=== PATIENT | male | born 1935 | race Caucasian/White ===

== ENCOUNTER → 2017-06-21 | Outpatient (CLI) | payer OTHER ==
[2017-06-17 10:33] LABS: BLOOD UREA NITROGEN 13 mg/dl (7-18)
[~2017-06-21] MED LIST: ALBU1AER9 PO; ASPCH81X PO; ASPEC81 PO; CPR500 PO; GADAVIST IV PRN; METO25TA56 PO; NAPR-998 PO; ROSU5TAB PO; SYMIN160 INH
--- NOTE | 2017-06-21 14:25 | DIAGNOSTIC IMAGING REPORT ---
CERVICAL SPINE COMBO CLINICAL HISTORY: 82 years-old Male presenting with NUMBNESS/TINGLING RT ARM. TECHNIQUE: Multisequence, multiplanar MR imaging of the cervical spine was performed without the use of intravenous contrast. IV contrast: None. COMPARISON: None. FINDINGS: Localizer images: Unremarkable. Slightly exaggerated cervical lordosis. Vertebral bodies maintain normal height, alignment, and bone marrow signal intensity. Intervertebral disc desiccation noted in the mid cervical spine, where there are extensive disc osteophyte complexes from C2-3 through C5-6 further detailed below: C2-3: Minimal disc ossified complex without evidence of neural foraminal or spinal canal stenosis. C3-4: Mild disc osteophyte complex in combination with ligamentum flavum hypertrophy and uncovertebral and facet arthropathy result in circumferential effacement of the thecal sac and contouring of the ventral aspect of the cord. Moderate bilateral neural foraminal narrowing results. C4-5: Disc osteophyte complex, ligamentum flavum hypertrophy, and uncovertebral and facet arthropathy result in complete effacement of CSF and flattening of the spinal cord. Severe bilateral neural foraminal narrowing. C5-6: Disc osteophyte complex, ligament flavum hypertrophy, and uncovertebral and facet arthropathy result in complete effacement of CSF and flattening of the spinal cord. Severe bilateral neural foraminal narrowing. C6-7: Uncovertebral hypertrophy results in minimal bilateral neural foraminal narrowing. Cervical spinal cord altered in configuration as above although maintaining normal signal intensity. No evidence of atrophy. Craniocervical junction normal. Postcontrast imaging does not demonstrate abnormal enhancement. No epidural fluid collection. Paraspinal soft tissues within normal limits. IMPRESSION: 1. Extensive degenerative changes result in severe spinal canal stenosis at C4-5 and C5-6 with flattening of the spinal cord. This raises concern for spinal cord impingement. No demonstrable abnormal signal intensity within the spinal cord to suggest edema or myelomalacia. 2. Varying degrees of neural foraminal narrowing, severe bilateral at C4-5 and C5-6, further detailed above. The report will be called/faxed according to standard departmental protocol. Electronically signed by: Sigifredo Toro M.D. 06/21/2017 2:24 PM Dictated Date/Time: 06/21/2017 2:17 PM
== END | disposition home or self-care (01) ==
LOC: C.MRIBC 12:58
PROVIDERS: ATTEND Physician Assistant
DX: R20.0 Anesthesia of skin (principal); R20.2 Paresthesia of skin; E11.9 Type 2 diabetes mellitus without complications; D64.9 Anemia, unspecified; M99.71 Connective tissue and disc stenosis of intervertebral foramina of cervical region

== ENCOUNTER 2017-08-10 15:57 | Emergency (ER) | payer OTHER ==
[~2017-08-10] VITALS: Ht 174 cm; Wt 98.7 kg
[~2017-08-10 15:57] MED LIST changes: -GADAVIST IV PRN; -METO25TA56 PO; -NAPR-998 PO; -ROSU5TAB PO; -SYMIN160 INH
[2017-08-10 15:59] VITALS: BP 136/83; PULSE 77; TEMP 36.4; O2SAT 94; Ht 174 cm; Wt 98.7 kg
[2017-08-10] MEDS ORDERED: ASPI81TA28 PO (16:35)
[2017-08-10] MEDS ORDERED: ALBU18002 INH (16:35)
--- NOTE | 2017-08-10 16:37 | DIAGNOSTIC IMAGING REPORT ---
L ELBOW MIN 3 VIEWS ROUTINE HISTORY: 82 years-old Male L elbow/prox forearm pain acute left elbow pain status post fall. COMPARISON: None available TECHNIQUE: 3 views of the left elbow FINDINGS: Chondrocalcinosis about the elbow. Mild marginal spurring involves both the lateral and medial epicondyles. Minimal spurring of the olecranon process. No acute fracture or dislocation. Radial head appears intact. Mild soft tissue swelling noted about the elbow. IMPRESSION: 1. Mild soft tissue swelling without acute fracture or dislocation. 2. Chondrocalcinosis with mild degenerative changes as above. The above report was generated using voice recognition software. It may contain grammatical, syntax or spelling errors. Electronically signed by: Raul Delatorre M.D. 08/10/2017 4:36 PM Dictated Date/Time: 08/10/2017 4:34 PM
--- NOTE | 2017-08-10 16:56 | EMERGENCY ROOM VISIT NOTE ---
ED Visit Note First contact with patient: 16:03 I did evaluate and examine this patient myself. I did guide management for the patient. I agree with the APC's assessment as discussed. Please see the APC's dictation for further details. I did independently review the x-rays. There is no evidence of fracture. I am concerned about possible partial muscle tear. He was placed in a sling. He has no evidence of compartment syndrome. He will follow up with [facility].
--- NOTE | 2017-08-10 16:59 | EMERGENCY ROOM VISIT NOTE ---
History First contact with patient: 16:03 Chief Complaint: FOREARM PAIN Stated Complaint: EXTREME PAIN IN LT FOREARM FOLLOWING ACCIDENT History of Present Illness The patient is a 82 year old male who presents to the Emergency Room with complaints of left proximal forearm/elbow pain after he lost his balance and fell on a ladder. The patient was reaching up with his right hand to change a smoke detector. Patient believes that he got his left arm caught in the ladder rung. The patient does report mild swelling, but denies any paresthesias or numbness of the left hand or fingers. He does report mild left shoulder pain as well. He denies any head or neck injury, back pain, chest pain or other significant injuries from this incident, and rates his discomfort a 5 out of 10. Review of Systems 10 system review was performed and was negative except for pertinent positives and negatives as indicated in history of present illness Past Medical/Surgical History Medical Problems: (1) Abdominal pain (2) Borderline diabetic (3) Seasonal asthma Family History Patient reports no known family medical history. Social History Smoking Status: Former Smoker Alcohol Use: occasionally Drug Use: none Marital Status: Current/Historical Medications Scheduled Aspirin (Aspirin Ec), 81 MG PO Q2D Budesonide/Formoterol Fumarate (Symbicort 160/4.5 Inhaler ), 2 PUFFS INH BID Metoprolol Tartrate (Lopressor) (Lopressor), 12.5 MG PO DAILY Naproxen Sodium-Diphenhydramin (Aleve Pm 220-25 mg), 1 TAB PO HS Rosuvastatin Calcium (Crestor), 2.5 MG PO HS Scheduled PRN Albuterol Sulfate (Proair Respiclick), 2 PUFFS INH UD PRN for Shortness of Breath Physical Exam Vital Signs Date Time Temp Pulse Resp B/P (MAP) Pulse Ox O2 Delivery O2 Flow Rate FiO2 08/10/17 15:59 36.4 77 20 136/83 94 Room Air Physical Exam CONSTITUTIONAL: Healthy and well nourished. Alert and oriented X 3 with positive affect. Patient does not appear in any significant distress. HEENT: Normocephalic, atraumatic. Pupils equal, round and reactive. NECK: Full active range of motion without discomfort. MUSCULOSKELETAL: Examination shows mild edema of the proximal forearm. He is tender over the extensor wad and through the radial head region. No focal tenderness through the medial or lateral joint line, olecranon process or triceps region. He does have mild discomfort through the distal biceps region, but has no antecubital ecchymosis. His pain is worsened with pronation and supination. Distal pulses are intact. INTEGUMENTARY: No rash or other significant dermatologic conditions noted. NEUROLOGIC: No focal neurologic deficits noted. Left hand and fingers are sensory intact. Medical Decision & Procedures ER Provider Diagnostic Interpretation: My interpretation of left elbow x-rays does not show any acute fractures or dislocations. Radiologist report is as follows: L ELBOW MIN 3 VIEWS ROUTINE HISTORY: 82 years-old Male L elbow/prox forearm pain acute left elbow pain status post fall. COMPARISON: None available TECHNIQUE: 3 views of the left elbow FINDINGS: Chondrocalcinosis about the elbow. Mild marginal spurring involves both the lateral and medial epicondyles. Minimal spurring of the olecranon process. No acute fracture or dislocation. Radial head appears intact. Mild soft tissue swelling noted about the elbow. IMPRESSION: 1. Mild soft tissue swelling without acute fracture or dislocation. 2. Chondrocalcinosis with mild degenerative changes as above. ED Course Patient history and physical exam were performed. Nurse's notes were reviewed. The patient refused any analgesics while in the emergency department. An ice pack was applied. X-rays of the left elbow were normal. I did suggest that the patient follow-up with [facility] for further reevaluation and management. An arm sling was applied. The patient may alternate ibuprofen and Tylenol as needed for pain. The patient was happy with plan of care, voiced understanding of all discharge instructions, and rated his discomfort a 5 out of 10 at the conclusion of my exam. The patient was also seen and examined by Dr. Connor, ED attending physician, who agrees with workup and plan of care. Medical Decision Medication Reconcilliation Current Medication List: was personally reviewed by ri Blood Pressure Screening Patient's blood pressure: Normal blood pressure Impression Primary Impression: Contusion of left elbow and forearm Departure Information Dispostion Home / Self-Care Referrals Musa Araujo M.D. Forms HOME CARE DOCUMENTATION FORM, IMPORTANT VISIT INFORMATION Patient Instructions My [facility] Additional Instructions Intermittently apply ice (20 minutes on, 20 minutes off) over the next few days , then you may alternate ice and heat as needed. Ibuprofen 600 mg and/or Tylenol 1000 mg every 8 hours. You may also alternate these medications for more effective pain relief: Ibuprofen --4 HRS--> Tylenol --4 HRS--> ibuprofen --4 HRS--> Tylenol .... Follow-up with [facility] (Dr. Araujo) for further reevaluation and management - call tomorrow morning for an appointment. Problem Qualifiers Primary Impression: Contusion of left elbow and forearm Encounter type: initial encounter Qualified Codes: S50.12XA - Contusion of left forearm, initial encounter
[2017-08-10] MEDS ORDERED: METO25TA56 PO (18:27)
[2017-08-10] MEDS ORDERED: NAPR-998 PO (21:22)
[2017-08-10] MEDS ORDERED: ROSU5TAB PO (21:25)
[2017-08-10] MEDS ORDERED: SYMIN160 INH (21:27)
== END 2017-08-10 17:00 | disposition home or self-care (01) ==
LOC: C.EDB 15:59 → C.EDD 17:00
DX: S50.12XA Contusion of left forearm, initial encounter (principal); W11.XXXA Fall on and from ladder, initial encounter; Z87.891 Personal history of nicotine dependence; Z79.82 Long term (current) use of aspirin; Z79.899 Other long term (current) drug therapy

== ENCOUNTER → 2017-10-14 | Outpatient (CLI) | payer OTHER ==
[~2017-10-14] MED LIST changes: +ALBU18002 INH; -ALBU1AER9 PO; -ASPCH81X PO; -ASPEC81 PO; +ASPI81TA28 PO; -CPR500 PO; +METO25TA56 PO; +NAPR-998 PO; +ROSU5TAB PO; +SYMIN160 INH
[2017-10-14 09:45] LABS: HEMATOCRIT 46.5 % (42-52); MEAN CELL VOLUME 93.6 fL (80-100); MEAN CORPUSCULAR HEMOGLOBIN 32.2 pg (25-34); MEAN CORPUSCULAR HGB CONC 34.4 g/dl (32-36); PLATELET COUNT 225 K/uL (130-400); RED CELL DISTRIBUTION WIDTH CV 13.1 % (11.5-14.5); RED CELL DISTRIBUTION WIDTH SD 44.8 fL (36.4-46.3); WHITE BLOOD COUNT 9.98 K/uL (4.8-10.8)
[2017-10-14 10:11] LABS: HEMOGLOBIN A1C 4.9 % (4.5-5.6)
[2017-10-14 11:01] LABS: BLOOD UREA NITROGEN 12 mg/dl (7-18); CALCIUM 9.2 mg/dl (8.5-10.1); CARBON DIOXIDE 29 mmol/L (21-32); CHOLESTEROL 220 mg/dl (0-200); CREATININE 1.09 mg/dl (0.60-1.40); GLUCOSE 140 mg/dl (70-99); POTASSIUM 4.1 mmol/L (3.5-5.1); SODIUM 135 mmol/L (136-145)
[2017-10-14 11:05] LABS: LDL CHOLESTEROL CALCULATED 140 mg/dl
== END | disposition home or self-care (01) ==
LOC: C.LAB1850 08:19
PROVIDERS: ATTEND Internal Medicine
DX: E11.9 Type 2 diabetes mellitus without complications (principal); E78.5 Hyperlipidemia, unspecified; D64.9 Anemia, unspecified

== ENCOUNTER 2019-05-27 10:46 | Inpatient (IN) ==
[2019-05-27 11:25] LABS: Basophils # (auto) 0.01 K/uL (0-0.2); Basophils % (auto) 0.1 %; Eosinophils # (auto) 0.11 K/uL (0-0.5); Eosinophils % (auto) 0.6 %; Hemoglobin 15.8 g/dL (14.0-18.0); Immature Granulocytes # (auto) 0.06 K/uL (0.00-0.02); Immature Granulocytes % (auto) 0.3 %; Lymphocytes # (auto) 2.13 K/uL (1.2-3.4); Lymphocytes % (auto) 11.2 %; Mean Corpuscular Hgb Conc 35.9 g/dL (32-36); Mean Corpuscular Volume 92.2 fL (80-100); Mean Platelet Volume 10.5 fL (7.4-10.4); Monocytes # (auto) 1.31 K/uL (0.11-0.59); Monocytes % (auto) 6.9 %; Neutrophils # (auto) 15.42 K/uL (1.4-6.5); Neutrophils % (auto) 80.9 %; Platelet Count 204 K/uL (130-400); RDW Coefficient of Variation 12.7 % (11.5-14.5); RDW Standard Deviation 42.8 fL (36.4-46.3); Red Blood Count 4.77 M/uL (4.7-6.1); White Blood Count 19.04 K/uL (4.8-10.8)
[2019-05-27 11:43] LABS: Albumin Level 3.9 gm/dl (3.4-5.0); BUN Creatinine Ratio 16.3 (10-20); Calcium 9.1 mg/dl (8.5-10.1); Creatinine Clr Calc Pharmacy 62.2 ml/min; Est GFR (African American) 85.5; Est GFR (Non-African American) 73.7; Potassium 4.4 mmol/L (3.5-5.1)
[2019-05-27 11:47] LABS: Albumin Globulin Ratio 1.1 (0.9-2); Bilirubin,Total 1.1 mg/dl (0.2-1); Globulin 3.5 gm/dl (2.5-4.0); Total Protein 7.4 gm/dl (6.4-8.2)
--- NOTE | 2019-05-27 12:07 | CT Scan Report ---
CT SCAN OF THE ABDOMEN AND PELVIS WITHOUT CONTRAST CLINICAL HISTORY: Left lower quadrant abdominal pain. Hypotension. History of diverticulitis. COMPARISON STUDY: 02/22/2016 TECHNIQUE: CT scan of the abdomen and pelvis was performed from the lung bases to the proximal femurs . Images are reviewed in the axial, sagittal, and coronal planes. IV contrast was not administered fo r this examination. A dose lowering technique was utilized adhering to the principles of ALARA. CT DOSE: 533.49 mGy.cm FINDINGS: Lower chest: There are dependent atelectatic changes. Liver: The unenhanced liver is normal in size, contour, and attenuation. There is no intrahepatic chris iary ductal dilatation. Gallbladder: Unremarkable. Spleen: Normal in size and attenuation. Pancreas: Unremarkable. Adrenal glands: Unremarkable. Kidneys: No renal, ureteral, or bladder calculi are visualized. There is a 1 cm right renal cyst. Bowel: There is extensive colonic diverticulosis. There are peridiverticular inflammatory changes at the level of the distal descending colon. There are multiple droplets of free intraperitoneal air, li lizzie secondary to colonic perforation at this site. There are no fluid collections to indicate a drai nable abscess. Peritoneum: There is free intraperitoneal air. There is trace free pelvic fluid. Vasculature: The abdominal aorta is normal in course and caliber. Adenopathy: None. Pelvic viscera: The prostate is enlarged. . Skeletal structures: There is a small amount of fluid within the right iliopsoas bursa IMPRESSION: 1. Acute diverticulitis involving the distal descending colon. This is felt to be perforated, given t he multiple droplets of free intraperitoneal air. No evidence of abscess. 2. No evidence of bowel obstruction Electronically signed by: Ilir Cantor M.D. 05/27/2019 12:05 PM
[2019-05-27] MEDS ORDERED: PIPERACILL/TAZOBAC CONSULT ACTIVE PRN ×2 (12:10→14:52)
[2019-05-27] MEDS ORDERED: SODIUM CHLORIDE 0.9% 1000ML 1,000 ML IV STA (12:10)
[2019-05-27] MEDS ORDERED: SODIUM CHLORIDE 0.9% 1000ML 500 ML IV ONE (12:10)
[2019-05-27] MEDS ORDERED: PIPERACILLIN/TAZOBACTAM 4.5 GM/120 ML BAG IV ONE (12:10)
[2019-05-27 12:47] LABS: Appearance Urine Clear (Clear); Bacteria Urine Automated Negative (Negative); Bilirubin Urine Negative (Negative); Blood Urine Negative (Negative); Cast Urine Automated 0 /lpf (0-5); Color Urine Yellow; Epithelial Cell Urine Auto 0-5 /lpf (0-5); Glucose Urine UA Negative (Negative); Ketones Urine Negative (Negative); Leukocyte Esterase Urine Trace (Negative); Nitrite Urine Negative (Negative); Protein Urine Negative (Negative); RBC Urine Automated 0-4 /hpf (0-4); Specific Gravity Urine 1.009 (1.000-1.030); Urobilinogen Urine Negative (Negative); WBC Urine Automated 0 /hpf (0-5); pH Urine 7.5 (4.5-7.5)
--- NOTE | 2019-05-27 14:08 | History & Physical Report ---
Date of Service May 27, 2019 Assessment & Plan (1) Abdominal pain: CT AP noted for diverticulitis with possible micro perf and no abscess ED spoke with gen surg who will see pt Started on zosyn in the ED, will continue NPO until surgical eval---If surgery has no further interventions, pt can eat from a medical standpoint IVF Elevated WBC, afebrile Monitor (2) Ventricular dysfunction: Pt describes some sort of ventricular issue that he used to take metoprolol for, however he started exercising and the resulting weight loss left his BP in the low normal range It was decided to d/c metoprolol several months ago due to this (3) Hyperlipidemia: Resolved s/p weight loss, no longer on medication (4) Asthma: continue PRN albuterol (5) DVT prophylaxis: SCDs History of Present Illness Primary Care Provider: NO PCP 84 y/o M c/o abd pain. Pt states he woke up with some R shoulder pain around 2:30a and noted a sudden sharp LLQ abd pain at that time. They had eaten dinner out last night and he had noted a tomato that was a bit "off" so he thought maybe it was related to that, but his pain continued to worsen. It became more sharp and intense. He had several bowel movements that were firm but frequent, however this did not improve his pain. He has a hx of diverticulitis x1 and felt that this was a less intense pain but similar overall to that episode, so he came to the ED. Pt states that he no longer has pain without moving but there is still a sharp pain if he moves around much s/p IVF and abx in the ED. 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 Family History Sister Myocardial infarction Hypertension Mother CHF (congestive heart failure) Social History Feels Safe at Home: Yes Smoking Status: Former smoker Tobacco Type: pipe ; Cigarettes Per Day: pipe in college ; Hx Alcohol Use: Yes (1-2 glasses of wine 1-2 nights per week) Hx Substance Use: No Review of Systems Review of Systems: Pertinent positives and negatives reviewed in HPI--all others negative Physical Exam Constitutional: WD/WN, vitals as above Eyes: normal visual barber by confrontation and + anicteric sclerae Neck: normal visual inspection and trachea midline Respiratory: normal respiratory effort, lungs clear to auscultation Cardiovascular: Rate/Rhythm: regular rate and regular rhythm Gastrointestinal (Abdomen): Inspection/Auscultation: abdomen not distended Percussion/Palpation: + abdomen tender (LLQ) and abdomen soft Musculoskeletal: Head/Neck/Chest: normocephalic and head atraumatic negative for edema, peripheral pulses intact Skin: no rashes, warm and dry Neurologic: awake; not confused Speech / Cognition: normal speech Psychiatric: A+Ox3, euthymic affect Results & Data Vital Signs (Past 12 Hours) Vital Signs Temp Pulse Resp BP Pulse Ox 05/27/19 12:25 66 17 109/68 95 05/27/19 12:05 63 17 110/60 97 05/27/19 11:30 72 27 H 103/60 98 05/27/19 11:29 96 05/27/19 11:11 76 21 05/27/19 11:05 82 19 109/61 97 05/27/19 10:55 36.6 C 92 H 20 86/52 L 97 Diagnostic Findings CTAP: acute distal descending colon diverticulitis with possible micro perf, neg for abscess ECG Rhythm: normal sinus Code Status & VTE Plan VTE Prophylaxis Plan VTE Prophylaxis will be ordered: Yes PG Care Time/CCT Total # of Minutes Spent Total Time Spent with Patient: Total time spent is greater than 50% in coordination of care (as documented) at patient's floor/unit and/or counseling patient:
[2019-05-27] MEDS ORDERED: ALBUTEROL HFA 8 GM INHALER INH PRN (14:52)
[2019-05-27] MEDS ORDERED: MAGNESIUM HYDROXIDE SUSP 30 ML UDC PO PRN (14:52)
[2019-05-27] MEDS ORDERED: ONDANSETRON INJ 2 MG/ML 2 ML VIAL IV PRN (14:52)
[2019-05-27] MEDS: LACTATED RINGER'S 1,000 ML IV SCH ×2 (15:43→23:22)
[2019-05-27] MEDS: PIPERACILLIN/TAZOBACTAM 3.375 GM in DEXTROSE 5% 100 ML IV SCH (18:25)
--- NOTE | 2019-05-27 18:26 | Emergency Department Note ---
Entered by Dhara Gonsales acting as a scribe for ED Provider Note CHIEF COMPLAINT: Abdominal pain HISTORY OF PRESENT ILLNESS: The patient is an 84 year old male who presents to the Emergency Room with complaints of worsening abdominal pain that began 9 hours ago. The patient states that his pain is mostly on his left large intestine. The patient states that he took Pepcid and drank water prior to arrival. The patient states that hi s pain feels like prior episodes of diverticulitis. The patient rates his pain as a 5/10. The patient states that the pain is relieved when laying down. Pt denies LOC, headache, fevers, chills, diaphoresis, visual changes, neck pain, chest pain, breathing difficulties, nausea, vomiting, back pain, melena, hematochezia, urinary symptoms, numbness, weakness, lymphadenopathy, rash, or other complaints. REVIEW OF SYSTEMS: See HPI for pertinent positives and negatives. A total of ten systems were reviewed and were otherwise negative. 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 PHYSICAL EXAM: GENERAL: Awake, alert, well-appearing, in no distress HENT: Normocephalic, atraumatic. Oropharynx unremarkable. EYES: PERRL. Normal conjunctiva. Sclera non-icteric. NECK: Inspection normal. Non-tender. Supple. No nuchal rigidity. FROM. No masses. RESPIRATORY: Clear to auscultation. No wheezes. No rales. Normal respiratory effort. CARDIAC: Normal rate. Normal rhythm. No murmurs. No rubs. Extremities warm and well perfused. Pulses equal. No JVD. GI: Mild rebounding, LUQ tenderness. Soft, non-distended. No tenderness to palpation. No guarding. No masses. RECTAL: Deferred. MUSCULOSKELETAL: Atraumatic. Chest examination reveals no tenderness. The back is symmetrical on inspection without obvious abnormality. There is no CVA tenderness to palpation. No joint edema. LOWER EXTREMITIES: Calves are equal size bilaterally and non-tender. No edema. No discoloration. NEURO: Normal sensorium. No sensory or motor deficits noted. SKIN: No rash or jaundice noted. EMERGENCY DEPARTMENT COURSE: 1129: Past medical records reviewed. The patient was evaluated in room B6, and a complete history and physical examination were performed. 1216: I discussed the patient's case with Dr. Phillip- [facility] [place] he agrees to admit patient to medicine. 1243: I discussed the patient's case with Dr. Moya's- [facility] Hospitalist. She will evaluate the patient for further management. 1251: I updated the patient on the test results and treatment plan. He is agreeable for admission. MEDICAL DECISION MAKING: B6 Triage Nursing notes reviewed and agree them. Additional history obtained from the patient's . The patient's history was concerning for abdominal pain. Differential diagnosis: Etiologies such as diverticulitis, PUD, biliary pathology, UTI, pancreatitis, obstruction, mesenteric ischemia, aortic pathology, infections, inflammatory bowel disease, renal colic, appendicitis, as well as others were entertained. Physical examination findings: As above. ER treatment provided: he declined analgesia IV Zosyn IV saline hydration On reassessment the patient felt better. Diagnostics interpreted by me: ECG: No acute ischemia or dysrhythmia. The labs revealed a moderate leukocytosis on CBC. Chemistry panel and urinalysis unremarkable. Imaging studies: CT scan of the abdomen pelvis was performed and showed microperforated diverticulitis. Consultation: A consultation was placed with the general surgeon on-call, Dr. Phillip. He agreed with the antibiotics and medical admission. Consultation was placed with Dr. Harris of internal medicine.. The case was discussed and diagnostics were reviewed. The patient was evaluated in the ER for further treatment. IMPRESSION: Diverticulitis of intestine with perforation PLAN: Being evaluated by hospitalist The scribe's documentation has been prepared under my direction and personally reviewed by me in its entirety. I confirm that the note above accurately reflects all work, treatment, procedures, and medical decision making performed by me. CRITICAL CARE: I have personally spent greater than 30 minutes of critical care time in the direct management of this patient. This includes bedside care, interpretation of diagnostic studies, and testing, discussion with consultants, patient, and family members, and other required patient management activities. This 30 minutes is in excess of all separately billable procedures. 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 Family History Sister Myocardial infarction Hypertension Mother CHF (congestive heart failure) Social History Preferred Language: Ukrainian Communication Ability: Effective Allergy Nurse Required: No Beliefs That Will Affect Care: None Current Living Situation: Personal Care Facility Current Living Situation Comment: [facility] Feels Safe at Home: Yes Smoking Status: Former smoker Tobacco Type: pipe ; Cigarettes Per Day: pipe in college ; Hx Alcohol Use: Yes Alcohol type: wine Hx Substance Use: No Results & Data Vital Signs Vital Signs - 24 hr 05/27/19 10:55 05/27/19 11:05 05/27/19 11:11 Temperature 36.6 C Temperature Source Oral Sepsis Recent Fever Within 48 Hours No Sepsis New/Unexplained Change in Mental Status No Sepsis Action Taken by Nursing No Action Required Pulse Rate 92 H 82 76 Pulse Rate from SpO2 Sensor Pulse Rhythm Regular Pulse Strength Normal Respiratory Rate 20 19 21 Respiratory Effort / Characteristics Non-Labored Spontaneous Respiratory Depth Normal Respiratory Pattern Regular Blood Pressure 86/52 L 109/61 Blood Pressure Mean 63 77 Blood Pressure Position Sitting Pulse Oximetry 97 97 Oxygen Delivery Method Room Air Room Air 05/27/19 11:29 05/27/19 11:30 05/27/19 12:05 Temperature Temperature Source Sepsis Recent Fever Within 48 Hours Sepsis New/Unexplained Change in Mental Status Sepsis Action Taken by Nursing Pulse Rate 72 63 Pulse Rate from SpO2 Sensor Pulse Rhythm Pulse Strength Respiratory Rate 27 H 17 Respiratory Effort / Characteristics Respiratory Depth Respiratory Pattern Blood Pressure 103/60 110/60 Blood Pressure Mean 74 76 Blood Pressure Position Pulse Oximetry 96 98 97 Oxygen Delivery Method Room Air Room Air Room Air 05/27/19 12:25 Temperature Temperature Source Sepsis Recent Fever Within 48 Hours Sepsis New/Unexplained Change in Mental Status Sepsis Action Taken by Nursing Pulse Rate 66 Pulse Rate from SpO2 Sensor 64 Pulse Rhythm Pulse Strength Respiratory Rate 17 Respiratory Effort / Characteristics Respiratory Depth Respiratory Pattern Blood Pressure 109/68 Blood Pressure Mean 81 Blood Pressure Position Pulse Oximetry 95 Oxygen Delivery Method Room Air Home Medications Current Medication List: was personally reviewed by me Laboratory Data Attestation: I reviewed the patient's lab results. Result diagrams: 05/27/19 11:15 05/27/19 11:15 Lab Results 05/27/19 05/27/19 05/27/19 Range/Units 11:15 11:15 12:03 WBC 19.04 H (4.8-10.8) K/uL RBC 4.77 (4.7-6.1) M/uL Hgb 15.8 (14.0-18.0) g/dL Hct 44.0 (42-52) % MCV 92.2 (80-100) fL MCH 33.1 (25-34) pg MCHC 35.9 (32-36) g/dL RDW Std Deviation 42.8 (36.4-46.3) fL RDW Coeff of Reilly 12.7 (11.5-14.5) % Plt Count 204 (130-400) K/uL MPV 10.5 H (7.4-10.4) fL Immature Gran % (Auto) 0.3 % Neut % (Auto) 80.9 % Lymph % (Auto) 11.2 % [place] % (Auto) 6.9 % Eos % (Auto) 0.6 % Baso % (Auto) 0.1 % Immature Gran # (Auto) 0.06 H (0.00-0.02) K/uL Neut # (Auto) 15.42 H (1.4-6.5) K/uL Lymph # (Auto) 2.13 (1.2-3.4) K/uL [place] # (Auto) 1.31 H (0.11-0.59) K/uL Eos # (Auto) 0.11 (0-0.5) K/uL Baso # (Auto) 0.01 (0-0.2) K/uL Sodium 136 (136-145) mmol/L Potassium 4.4 (3.5-5.1) mmol/L Chloride 102 (98-107) mmol/L Carbon Dioxide 30 (21-32) mmol/L Anion Gap 4.0 (3-11) BUN 15 (7-18) mg/dl Creatinine 0.95 (0.6-1.4) mg/dl Est Cr Clr Drug Dosing 62.2 ml/min Est GFR ( Amer) 85.5 Est GFR (Non-Af Amer) 73.7 BUN/Creatinine Ratio 16.3 (10-20) Glucose 112 H (70-99) mg/dl Calcium 9.1 (8.5-10.1) mg/dl Total Bilirubin 1.1 H (0.2-1) mg/dl AST 24 (15-37) U/L ALT 28 (12-78) U/L Alkaline Phosphatase 64 (45-117) U/L Total Protein 7.4 (6.4-8.2) gm/dl Albumin 3.9 (3.4-5.0) gm/dl Globulin 3.5 (2.5-4.0) gm/dl Albumin/Globulin Ratio 1.1 (0.9-2) Lipase 89 (73-393) U/L Urine Color Yellow Urine Appearance Clear (Clear) Urine pH 7.5 (4.5-7.5) Ur Specific [place] 1.009 (1.000-1.030) Urine Protein Negative (Negative) Urine Glucose (UA) Negative (Negative) Urine Ketones Negative (Negative) Urine Blood Negative (Negative) Urine Nitrite Negative (Negative) Urine Bilirubin Negative (Negative) Urine Urobilinogen Negative (Negative) Ur Leukocyte Esterase Trace H (Negative) Urine WBC (Auto) 0 (0-5) /hpf Urine RBC (Auto) 0-4 (0-4) /hpf U Hyaline Cast (Auto) 0 (0-5) /lpf U Epithel Cells (Auto) 0-5 (0-5) /lpf Urine Bacteria (Auto) Negative (Negative) Administered Medications Sodium Chloride (Nss 1000ml) 1,000 mls @ 125 mls/hr IV .Q8H STA Stop: 05/27/19 20:09 Last Infusion: 05/27/19 15:43 Dose: 0 mls/hr Documented by: [id number] Admin: 05/27/19 12:23 Dose: 125 mls/hr Documented by: [id number] Lactated Ringer's (Lr) 1,000 mls @ 115 mls/hr IV .Q8H42M KIRSTIN Stop: 06/26/19 14:51 Last Admin: 05/27/19 15:43 Dose: 115 mls/hr Documented by: [id number] Discontinued Medications Piperacillin Sod/Tazobactam Sod (Zosyn) 4.5 gm in 120 mls @ 240 mls/hr IV NOW ONE Stop: 05/27/19 12:39 Last Infusion: 05/27/19 13:35 Dose: 0 mls/hr Documented by: [id number] Admin: 05/27/19 12:22 Dose: 240 mls/hr Documented by: [id number] Sodium Chloride (Nss 1000ml) 500 mls @ 999 mls/hr IV .Q31M ONE Stop: 05/27/19 12:40 Last Infusion: 05/27/19 13:35 Dose: 0 mls/hr Documented by: [id number] Admin: 05/27/19 12:23 Dose: 999 mls/hr Documented by: [id number] Imaging Data Radiologist's Impression: Radiology results as stated below per my review and the radiologist's interpretation: CT SCAN OF THE ABDOMEN AND PELVIS WITHOUT CONTRAST CLINICAL HISTORY: Left lower quadrant abdominal pain. Hypotension. History of diverticulitis. COMPARISON STUDY: 02/22/2016 TECHNIQUE: CT scan of the abdomen and pelvis was performed from the lung bases to the proximal femurs. Images are reviewed in the axial, sagittal, and coronal planes. IV contrast was not administered for this examination. A dose lowering technique was utilized adhering to the principles of ALARA. CT DOSE: 533.49 mGy.cm FINDINGS: Lower chest: There are dependent atelectatic changes. Liver: The unenhanced liver is normal in size, contour, and attenuation. There is no intrahepatic biliary ductal dilatation. Gallbladder: Unremarkable. Spleen: Normal in size and attenuation. Pancreas: Unremarkable. Adrenal glands: Unremarkable. Kidneys: No renal, ureteral, or bladder calculi are visualized. There is a 1 cm right renal cyst. Bowel: There is extensive colonic diverticulosis. There are peridiverticular inflammatory changes at the level of the distal descending colon. There are multiple droplets of free intraperitoneal air, likely secondary to colonic perforation at this site. There are no fluid collections to indicate a drainable abscess. Peritoneum: There is free intraperitoneal air. There is trace free pelvic fluid. Vasculature: The abdominal aorta is normal in course and caliber. Adenopathy: None. Pelvic viscera: The prostate is enlarged. . Skeletal structures: There is a small amount of fluid within the right iliopsoas bursa IMPRESSION: 1. Acute diverticulitis involving the distal descending colon. This is felt to be perforated, given the multiple droplets of free intraperitoneal air. No jackie dence of abscess. 2. No evidence of bowel obstruction Electronically signed by: Ilir Cantor M.D. 05/27/2019 12:05 PM ECG Data Attestation: I personally reviewed and interpreted this ECG as follows: Indication: abdominal pain Rate (beats per minute): 68 Rhythm: normal sinus Findings: no PAC, no PVC, no ST depression and no ST elevation Blood Pressure Blood Pressure Findings: Normal blood pressure Blood Pressure Disposition: did not require urgent referral Discharge Plan Visit Data *Final* Discharge Date/Time: 05/27/19 14:27 Chief Complaint: Abdominal Pain Stated Complaint: SHARP PAIN ON LEFT SIDE- HX DIVERTICULTIS ED Provider: Jose Musa Discharge Problem: Diverticulitis of intestine with perforation Patient Disposition: Admitted As Inpatient Discharge Instructions Interventions: ED Discharge Assessment Last Done: 05/27/19 14:27 Discharge Problem: Diverticulitis of intestine with perforation Qualifiers: Diverticulitis site: unspecified part of intestinal tract Diverticulitis bleeding: unspecified bleeding status Qualified Code(s): K57.80 - Diverticulitis of intestine, part unspecified, with perforation and abscess without bleeding The scribe's documentation has been prepared under my direction and personally reviewed by me in its entirety. I confirm that the note above accurately reflects all work, treatment, procedures, and medical decision making performed by me.
[2019-05-27] MEDS: ACETAMINOPHEN 325 MG TAB PO PRN ×2 (18:46→23:06)
[2019-05-28] MEDS: PIPERACILLIN/TAZOBACTAM 3.375 GM in DEXTROSE 5% 100 ML IV SCH ×3 (01:55→18:10)
[2019-05-28 07:52] LABS: Basophils # (auto) 0.05 K/uL (0-0.2); Basophils % (auto) 0.5 %; Eosinophils # (auto) 0.32 K/uL (0-0.5); Eosinophils % (auto) 3.4 %; Hematocrit (blood only) 38.9 % (42-52); Hemoglobin 13.2 g/dL (14.0-18.0); Immature Granulocytes # (auto) 0.03 K/uL (0.00-0.02); Immature Granulocytes % (auto) 0.3 %; Lymphocytes # (auto) 1.94 K/uL (1.2-3.4); Lymphocytes % (auto) 20.8 %; Mean Corpuscular Hgb Conc 33.9 g/dL (32-36); Mean Corpuscular Volume 93.3 fL (80-100); Mean Platelet Volume 10.9 fL (7.4-10.4); Monocytes # (auto) 0.87 K/uL (0.11-0.59); Monocytes % (auto) 9.3 %; Neutrophils # (auto) 6.13 K/uL (1.4-6.5); Neutrophils % (auto) 65.7 %; Platelet Count 178 K/uL (130-400); RDW Standard Deviation 44.4 fL (36.4-46.3); Red Blood Count 4.17 M/uL (4.7-6.1); White Blood Count 9.34 K/uL (4.8-10.8)
[2019-05-28] MEDS: LACTATED RINGER'S 1,000 ML IV SCH ×2 (07:56→16:39)
[2019-05-28 08:28] LABS: BUN Creatinine Ratio 13.1 (10-20); Calcium 8.6 mg/dl (8.5-10.1); Creatinine Clr Calc Pharmacy 62.9 ml/min; Est GFR (African American) 86.6; Est GFR (Non-African American) 74.7; Potassium 3.8 mmol/L (3.5-5.1)
--- NOTE | 2019-05-28 09:39 | Surgery Consultation ---
Date of Consultation May 28, 2019 Assessment & Plan (1) Diverticulitis of intestine with perforation: clinically much improved WBC improved can have a few sips of clears only for now continue IV antibiotics will continue to follow closely. History of Present Illness Attending Physician: Jon Stern History of Present Illness pt with a couple day history of abdominal pain/worsening.. CT shows diverticulitis with likely microperforation. had a similar epidsode about 3 years ago per him. feeling much better today. 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 Family History Sister Myocardial infarction Hypertension Mother CHF (congestive heart failure) Social History Preferred Language: [place] Citizen Communication Ability: Effective Clinical Educator Required: No Beliefs That Will Affect Care: None Current Living Situation: Personal Care Facility Current Living Situation Comment: [facility] Feels Safe at Home: Yes Smoking Status: Former smoker Tobacco Type: pipe ; Cigarettes Per Day: pipe in college ; Hx Alcohol Use: Yes Alcohol type: wine Hx Substance Use: No Review of Systems Review of Systems: All systems reviewed & are unremarkable except as noted in HPI & below Physical Exam Constitutional: WD/WN, vitals as above no acute distress and not ill appearing Eyes: PERRL, conjunctivae normal, anicteric sclerae EOM intact bilaterally ENMT: external ear and nose normal, oropharynx normal Ears: no hearing impairment Neck: trachea midline, no thyromegaly Respiratory: normal respiratory effort; no respiratory distress and does not use accessory muscles Cardiovascular: Rate/Rhythm: regular rate and regular rhythm Gastrointestinal (Abdomen): soft. minimal ttp in LLQ and supra-pubic region. no g/r/r Skin: no rashes, warm and dry Psychiatric: Orientation: alert, oriented x 3 and cooperative Results & Data Vital Signs (Past 12 Hours) Vital Signs Temp Pulse Resp BP Pulse Ox 05/28/19 07:46 36.7 C 64 18 102/67 93 05/27/19 23:40 36.6 C 59 L 17 100/62 92 PG Care Time/CCT Total # of Minutes Spent Total Time Spent with Patient: Total time spent is greater than 50% in coordination of care (as documented) at patient's floor/unit and/or counseling patient: (1) Diverticulitis of intestine with perforation Diverticulitis bleeding: unspecified bleeding status Diverticulitis site: unspecified part of intestinal tract Qualified Code(s): K57.80 - Diverticulitis of intestine, part unspecified, with perforation and abscess without bleeding
--- NOTE | 2019-05-28 09:43 | Hospitalist Progress Note ---
Date of Service May 28, 2019 Assessment & Plan (1) Abdominal pain: Patient reports improvement in pain. Improved pain tolerance. Improved WBC. Clear diet started. Appreciate gen surg input. CT AP noted for diverticulitis with possible micro perf and no abscess Started on zosyn in the ED, will continue IVF Monitor (2) Ventricular dysfunction: Pt describes some sort of ventricular issue that he used to take metoprolol for, however he started exercising and the resulting weight loss left his BP in the low normal range It was decided to d/c metoprolol several months ago due to this (3) Hyperlipidemia: Resolved s/p weight loss, no longer on medication (4) Asthma: continue PRN albuterol (5) DVT prophylaxis: SCDs Subjective 84 yo male reports feeling better today. He still has mild pain in his abdomen. He required a dose of pain medicine over night. Currently pain is mild and located in the Right lower quadrant. Review of Systems Review of Systems: All systems reviewed & are unremarkable except as noted in HPI & below Physical Exam Physical Exam: Constitutional: WD/WN, vitals as above; patient appears comfortable. Eyes: normal visual barber by confrontation and + anicteric sclerae Neck: normal visual inspection and trachea midline Respiratory: normal respiratory effort, lungs clear to auscultation Cardiovascular: Rate/Rhythm: regular rate and regular rhythm Gastrointestinal (Abdomen): Inspection/Auscultation: abdomen not distended Percussion/Palpation: + abdomen tender (LLQ) and abdomen soft Musculoskeletal: Head/Neck/Chest: normocephalic and head atraumatic negative for edema, peripheral pulses intact Skin: no rashes, warm and dry Neurologic: awake; not confused Speech / Cognition: normal speech Psychiatric: A+Ox3, euthymic affect Results & Data Vital Signs (Past 12 Hours) Vital Signs Temp Pulse Resp BP Pulse Ox 05/28/19 07:46 36.7 C 64 18 102/67 93 05/27/19 23:40 36.6 C 59 L 17 100/62 92 PG Care Time/CCT Total # of Minutes Spent Total Time Spent with Patient: Total time spent is greater than 50% in coordination of care (as documented) at patient's floor/unit and/or counseling patient:
[2019-05-28] MEDS: ACETAMINOPHEN 325 MG TAB PO PRN (22:47)
[2019-05-29] MEDS: LACTATED RINGER'S 1,000 ML IV SCH (01:07)
[2019-05-29] MEDS: PIPERACILLIN/TAZOBACTAM 3.375 GM in DEXTROSE 5% 100 ML IV SCH (01:08)
--- NOTE | 2019-05-29 08:10 | Surgery Progress Note ---
Date of Service May 29, 2019 Assessment & Plan (1) Diverticulitis of intestine with perforation: clinically doing great will advance to full liquids d/c planning potentially later today vs tomorrow on home antibiotics. will defer to primary team Subjective feeling much better. essentially no pain today. daly clears. Physical Exam Physical Exam: alert. nad abd: soft. very mild LLQ ttp. no g/r/r Results & Data Vital Signs (Past 12 Hours) Vital Signs Temp Pulse Pulse Resp BP Pulse Ox 05/29/19 08:04 36.4 C L 59 L 18 102/64 93 05/28/19 23:10 36.8 C 65 18 112/68 93 PG Care Time/CCT Total # of Minutes Spent Total Time Spent with Patient: Total time spent is greater than 50% in coordination of care (as documented) at patient's floor/unit and/or counseling patient: (1) Diverticulitis of intestine with perforation Diverticulitis bleeding: unspecified bleeding status Diverticulitis site: unspecified part of intestinal tract Qualified Code(s): K57.80 - Diverticulitis of intestine, part unspecified, with perforation and abscess without bleeding
[2019-05-29] MEDS ORDERED: AMOXICILLIN/CLAVULANATE 875 MG TAB PO SCH (10:00)
[2019-05-29 10:06] LABS: Hematocrit (blood only) 39.5 % (42-52); Hemoglobin 13.6 g/dL (14.0-18.0); Mean Corpuscular Hgb Conc 34.4 g/dL (32-36); Mean Corpuscular Volume 93.8 fL (80-100); Mean Platelet Volume 10.6 fL (7.4-10.4); Platelet Count 194 K/uL (130-400); RDW Standard Deviation 44.1 fL (36.4-46.3); Red Blood Count 4.21 M/uL (4.7-6.1); White Blood Count 8.62 K/uL (4.8-10.8)
[2019-05-29 10:58] LABS: Albumin Globulin Ratio 0.8 (0.9-2); BUN Creatinine Ratio 8.6 (10-20); Bilirubin,Total 0.9 mg/dl (0.2-1); Calcium 8.7 mg/dl (8.5-10.1); Creatinine Clr Calc Pharmacy 69.6 ml/min; Est GFR (African American) 93.4; Est GFR (Non-African American) 80.6; Globulin 3.7 gm/dl (2.5-4.0); Potassium 3.6 mmol/L (3.5-5.1); Total Protein 6.7 gm/dl (6.4-8.2)
--- NOTE | 2019-05-29 11:43 | Discharge Summary ---
Date of Service May 29, 2019 Admission HPI Per Admitting Provider 84 y/o M c/o abd pain. Pt states he woke up with some R shoulder pain around 2:30a and noted a sudden sharp LLQ abd pain at that time. They had eaten dinner out last night and he had noted a tomato that was a bit "off" so he thought maybe it was related to that, but his pain continued to worsen. It became more sharp and intense. He had several bowel movements that were firm but frequent, however this did not improve his pain. He has a hx of diverticulitis x1 and felt that this was a less intense pain but similar overall to that episode, so he came to the ED. Pt states that he no longer has pain without moving but there is still a sharp pain if he moves around much s/p IVF and abx in the ED. Principal Diagnosis Diverticulitis with micro - perfortation Discharge Exam Constitutional WD/WN, vitals as above Respiratory normal respiratory effort, lungs clear to auscultation Cardiovascular RRR, no murmur, no edema Gastrointestinal (Abdomen) Inspection/Auscultation: abdomen normal to inspection and normal bowel sounds; abdomen not distended Percussion/Palpation: abdomen soft; abdomen nontender and no guarding Musculoskeletal no cyanosis or clubbing, extremities motor strength 5/5 Skin no rashes, warm and dry Neurologic moves all extremities and awake Psychiatric A+Ox3, euthymic affect Discharge Data Allergies Allergy/AdvReac Type Severity Reaction Status Date / Time No Known Drug Allergies Allergy Unknown ` Verified 05/27/19 12:25 Consultations 05/27/19 12:51 ED Decision to Admit Stat 05/27/19 14:52 Consult General Surgery Routine Ordered Studies 05/27/19 11:31 CT abd pelvis wo con Stat Hospital Course (1) Abdominal pain: No further abdominal pain WBCs 19 on admission now wnl, afebrile, patient feels good today, up and walking around, no nausea or vomiting, tolerating his diet without issue. He has not had a bowel movement since admission however given that he had few bowel movements at home the day he came in and has been having a reduced diet since, I think it is ok for him to go home with monitoring. I did instruct him that he should let his provider know if he has not had a bowel movement by Wednesday. Placed on a bland diet, tolerated full liquids this morning, will discharge if he tolerates bland lunch Surgery consulted - no surgical intervention necessary CT AP noted for diverticulitis with possible micro perf and no abscess Provided IV zosyn inpatient - will take Augmentin and metronidazole for home for total of 10 days. If this causes GI upset could consider dropping the Flagyl and continuing with just Augmentin. I discussed with him that he should contact his pcp if he is having trouble tolerating his regimen Bili was 1.1 but has resolved (2) Ventricular dysfunction: Pt describes some sort of ventricular issue that he used to take metoprolol for, however he started exercising and the resulting weight loss left his BP in the low normal range It was decided to d/c metoprolol several months ago due to this Discussed taking it easy for the next week as far as exercise goes - light walking but should hold off on full regimen until follow up with pcp (3) Hyperlipidemia: Resolved s/p weight loss, no longer on medication (4) Asthma: continue PRN albuterol (5) DVT prophylaxis: SCDs while inpatient Total Time Total Time Spent Total Time Spent (In Minutes): greater than 30 minutes Discharge Plan Discharge Items Patient Disposition: Home - Self-Care Reason For Visit: DIVERTICULITIS Discharge Diagnosis: Diverticulitis with micro-perforation Discharge Goals: Decrease discomfort and Improve disease control Activity: Resume your previous activity Activity Comment: gradually as tolerated Non-emergency contact: Primary Care Provider Call non-emergency contact if: you have any medication questions Follow-up/Referrals: PCP,NO [Primary Care Provider] - Diet: Low Fiber and Low Fat Addtl Provider Instructions: Please see your primary care provider within about a week. Please contact your provider if you have not had a bowel movement by Wednesday. You can advance your diet as you can tolerate starting with a low fat/ low fiber diet. Do not drink alcohol while taking metronidazole as this will cause vomiting. You should also take a good quality probiotic every day. Prescriptions: New amoxicillin-pot clavulanate 875-125 mg Tablet 1 tab PO BIDM Qty: 15 RF: 0 metronidazole 500 mg tablet 500 mg PO TID Qty: 22 RF: 0 Continued naproxen sodium [Aleve] 220 mg Tablet 220 mg PO Q12H RF: 0 albuterol sulfate [Ventolin HFA] 90 mcg/actuation Hfa Aerosol Inhaler 2 puff INHALATION Q6H PRN (Reason: Shortness Of Breath Or Wheezing) RF: 0 Aleve PM 220-25 mg Tablet 1 tab PO HS RF: 0 Stand-Alone Forms: [place]/Other Patient Handouts: Metronidazole Oral tablet, Amoxicillin Trihydrate Clavulanate Potassium Oral tablet Discharge Orders: Discharge Order (Routine); Ordered 05/29/19 Ordered By: Ree Cotton Admission Data Admit Date/Time: 05/27/19 13:55 Attending Provider: Jon Stern Admit Provider: Brenda Harris Primary Care Provider: PCP,NO Other Providers: Brenda Harris ; Luis Miguel Phillip Service: Medical
== END 2019-05-29 14:17 | disposition home or self-care (01) | DRG 392 ==
LOC: ED 10:46 → SUATTDRO 13:55 → 3W 13:55
DX: I51.9 Heart disease, unspecified; J45.909 Unspecified asthma, uncomplicated; K57.20 Diverticulitis of large intestine with perforation and abscess without bleeding; E78.5 Hyperlipidemia, unspecified

== ENCOUNTER 2019-06-02 17:44 | Observation (INO) ==
[2019-06-02 18:31] LABS: Basophils # (auto) 0.04 K/uL (0-0.2); Basophils % (auto) 0.5 %; Eosinophils # (auto) 0.33 K/uL (0-0.5); Eosinophils % (auto) 4.1 %; Hematocrit (blood only) 40.8 % (42-52); Hemoglobin 14.6 g/dL (14.0-18.0); Immature Granulocytes # (auto) 0.02 K/uL (0.00-0.02); Immature Granulocytes % (auto) 0.3 %; Lymphocytes # (auto) 2.43 K/uL (1.2-3.4); Lymphocytes % (auto) 30.5 %; Mean Corpuscular Hemoglobin 32.7 pg (25-34); Mean Corpuscular Hgb Conc 35.8 g/dL (32-36); Mean Corpuscular Volume 91.5 fL (80-100); Mean Platelet Volume 9.9 fL (7.4-10.4); Monocytes # (auto) 0.89 K/uL (0.11-0.59); Monocytes % (auto) 11.2 %; Neutrophils # (auto) 4.26 K/uL (1.4-6.5); Neutrophils % (auto) 53.4 %; Platelet Count 274 K/uL (130-400); RDW Coefficient of Variation 12.7 % (11.5-14.5); RDW Standard Deviation 42.6 fL (36.4-46.3); Red Blood Count 4.46 M/uL (4.7-6.1); White Blood Count 7.97 K/uL (4.8-10.8)
[2019-06-02 18:41] LABS: INR 1.3 (0.9-1.1); Partial Thromboplastin Ratio 1.1; Partial Thromboplastin Time 29.9 Seconds (21.0-31.0); Prothrombin Time 12.9 Seconds (9.0-12.0)
[2019-06-02 19:00] LABS: Alanine Aminotransferase 40 U/L (12-78); Albumin Level 3.4 gm/dl (3.4-5.0); Alkaline Phosphatase 55 U/L (45-117); BUN Creatinine Ratio 18.2 (10-20); Bilirubin,Total 0.5 mg/dl (0.2-1); Blood Urea Nitrogen 16 mg/dl (7-18); Calcium 9.1 mg/dl (8.5-10.1); Carbon Dioxide 29 mmol/L (21-32); Chloride 101 mmol/L (98-107); Creatinine Clr Calc Pharmacy 64.2 ml/min; Est GFR (African American) 91.2; Est GFR (Non-African American) 78.7; Glucose 104 mg/dl (70-99); Lipase 84 U/L (73-393); Sodium 134 mmol/L (136-145); Total Protein 7.3 gm/dl (6.4-8.2); Troponin I < 0.015 ng/ml (0-0.045)
[2019-06-02 19:53] LABS: Potassium 3.9 mmol/L (3.5-5.1)
[2019-06-02] MEDS ORDERED: IOVERSOL 100ml IV PRN (19:54)
[2019-06-02 19:59] LABS: Bilirubin Direct 0.1 mg/dl (0-0.2); Magnesium 1.7 mg/dl (1.8-2.4)
[2019-06-02] MEDS: SODIUM CHLORIDE 0.9% 500 ML IV SCH (20:19)
--- NOTE | 2019-06-02 20:19 | CT Scan Report ---
CT OF THE ABDOMEN AND PELVIS WITH CONTRAST CLINICAL HISTORY: Fever. History of diverticulitis. COMPARISON STUDY: CT of the abdomen and pelvis May 27, 2019. TECHNIQUE: Following IV administration of 94 mL of Optiray-320, axial images of the abdomen and pelvi s were obtained from the lung bases to the proximal femurs. Images were reviewed in the axial, sagitt al, and coronal planes. IV contrast was administered without complication. Automated exposure contro l was utilized for the study. A dose lowering technique was utilized adhering to the principles of A JOSÉ. CT DOSE: 627.07 mGycm FINDINGS: Lung bases are unremarkable. The liver, spleen, adrenal glands and pancreas are unremarkabl e. Several subcentimeter renal lesions are too small character as but favor cysts. There is no hydron ephrosis. There is no biliary or pancreatic ductal dilatation. There is no evidence for a bowel patte rn. Colonic diverticulosis is noted. Mild infiltration adjacent to the distal descending colon has de creased since CT of May 27, 2019. There is no abscess. Pneumoperitoneum shown on that exam has res olved. Bladder is moderately enlarged. IMPRESSION: Acute diverticulitis of the distal descending colon improved since exam of May 27 19. No abscess. Interval decrease in pericolonic infiltration and resolution of pneumoperitoneum. Electronically signed by: Alonso Cagle M.D. 06/02/2019 8:18 PM
[2019-06-02 20:23] LABS: Appearance Urine Clear (Clear); Bacteria Urine Automated Negative (Negative); Bilirubin Urine Negative (Negative); Blood Urine Negative (Negative); Cast Urine Automated 0 /lpf (0-5); Color Urine Yellow; Glucose Urine UA Negative (Negative); Ketones Urine Trace (Negative); Leukocyte Esterase Urine 1+ (Negative); Nitrite Urine Negative (Negative); Protein Urine Negative (Negative); Specific Gravity Urine 1.038 (1.000-1.030); Urobilinogen Urine Negative (Negative); pH Urine 6.5 (4.5-7.5)
--- NOTE | 2019-06-02 21:23 | XRay Report ---
XR chest 2V routine CLINICAL HISTORY: Chest pain. COMPARISON STUDY: Chest radiograph January 27, 2012. FINDINGS: Lung volumes are normal. Lungs are clear. There is no pneumothorax or pleural effusion. Car diac size is normal. Mediastinal contours are normal. There is no evidence for pulmonary edema. IMPRESSION: No acute cardiopulmonary findings. Electronically signed by: Alonso Cagle M.D. 06/02/2019 9:21 PM
[2019-06-02] MEDS ORDERED: ASPIRIN CHEW 324 MG PO STA (23:50)
--- NOTE | 2019-06-02 23:50 | Emergency Department Note ---
Entered by Triston Lee acting as a scribe for Farhat Negrete History of Present Illness General Chief complaint: Stroke/CVA Symptoms Stated complaint: CONFUSION, DIZZINESS, SPEECH DIFFICULTY Time Seen by Provider: 06/02/19 18:03 Source: patient History of Present Illness Onset (ago): day(s) 1 Location: head Pain Consistency: + constant Maximum Pain Intensity: 2 Quality: + other Associated symptoms: + other (Positive for double vision, headaches, decreased balance, mild CP, and a fever. Negative for abdominal pain.) The patient is an 84 year old male who presents to the emergency department with complaints of constant stroke-like symptoms beginning earlier today. The patient states that he was admitted to the hospital a week ago for diverticulitis, and he notes that he was discharged on 06/08/2019. He reports that he was discharged on Flagyl and Augmentin at that time. The patient believes that he is having side effects to the medication, as he is having double vision, headaches, decreased balance, mild CP, a metallic taste in his mouth, and a fever. He states that the chest pain was located substernally and was mild pressure in nature. He states that the headache was mild in nature also and is now resolved. He states that his double vision started earlier today and he notes that his fever reached a high of 101 today. He denies any abdominal pain. He reports that he had a CT of the head and blood work done today which were negative. The patient states that he was given Tylenol [employer]. Home Medications Home Medications Medication Instructions Recorded Confirmed Type amoxicillin-pot clavulanate 1 tab PO BIDM #15 tab 05/29/19 06/02/19 Rx acetaminophen [Tylenol] 650 mg PO Q4 PRN 06/02/19 06/02/19 History melatonin 1 mg PO HS 06/02/19 06/02/19 History Allergies Allergy/AdvReac Type Severity Reaction Status Date / Time prednisone AdvReac changes Verified 06/02/19 19:19 mood with higher doses Past Med/Surg History Medical History Asthma DVT prophylaxis Hyperlipidemia Ventricular dysfunction Diverticulitis of intestine with perforation (Acute) Seasonal asthma Borderline diabetic Abdominal pain Diverticulitis 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 Family History Sister Myocardial infarction Hypertension Mother CHF (congestive heart failure) Social History Preferred Language: Icelandic Communication Ability: Effective Galvanizer Required: No Beliefs That Will Affect Care: None Current Living Situation: Personal Care Facility Current Living Situation Comment: [facility] Feels Safe at Home: Yes Smoking Status: Never smoker Tobacco Type: pipe ; Cigarettes Per Day: pipe in college ; Hx Alcohol Use: Yes (1-2 glasses of wine 1-2 nights per week) Alcohol type: wi ne Hx Substance Use: No Review of Systems See HPI for pertinent positives & negatives. and A total of 10 systems reviewed and were otherwise negative Physical Exam Vital Signs Vital Signs - 24 hr 06/02/19 17:51 06/02/19 18:48 06/02/19 19:39 Temperature 37 C Temperature Source Oral Sepsis Recent Fever Within 48 Hours No Sepsis Action Taken by Nursing No Action Required Pulse Rate 85 85 Pulse Rate [Right] 77 Pulse Rhythm Regular Pulse Rhythm [Right] Regular Pulse Strength [Right] Normal Respiratory Rate 20 20 16 Respiratory Effort / Characteristics Non-Labored Spontaneous Non-Labored Spontaneous Respiratory Depth Normal Normal Blood Pressure 114/69 Blood Pressure [Right Arm] 124/77 Blood Pressure Mean 84 Blood Pressure Mean [Right Arm] 92 Blood Pressure Position Sitting Blood Pressure Position [Right Arm] Lying Pulse Oximetry 97 97 99 Oxygen Delivery Method Room Air Room Air Room Air 06/02/19 21:52 06/02/19 22:17 06/02/19 23:33 Temperature 36.7 C Temperature Source Oral Sepsis Recent Fever Within 48 Hours Sepsis Action Taken by Nursing Pulse Rate Pulse Rate [Right] 80 82 Pulse Rhythm Pulse Rhythm [Right] Regular Pulse Strength [Right] Normal Respiratory Rate 16 16 Respiratory Effort / Characteristics Non-Labored Spontaneous Non-Labored Spontaneous Respiratory Depth Normal Normal Blood Pressure Blood Pressure [Right Arm] 141/88 H 125/82 Blood Pressure Mean Blood Pressure Mean [Right Arm] 105 96 Blood Pressure Position Blood Pressure Position [Right Arm] Lying Sitting Pulse Oximetry 96 96 Oxygen Delivery Method Room Air Room Air GENERAL: He is oriented to person, place, and time. He appears well-developed and well-nourished. He does not appear distressed. HENT: Exam performed. - Head: Normocephalic and atraumatic. - Right Ear: External ear normal. No mastoid tenderness. - Left Ear: External ear normal. No mastoid tenderness. - Mouth/Throat: The oropharynx is clear and moist. No trismus in the jaw. No dental abscesses or uvula swelling. No oropharyngeal exudate or tonsillar abscesses. EYES: Conjunctivae and EOM are normal. Pupils are equal, round, and reactive to light. Right eye exhibits no discharge. Left eye exhibits no discharge. No scleral icterus. NECK: Normal range of motion. Neck supple. No JVD present. No spinous process tenderness present. No carotid bruit present. No rigidity. No tracheal deviation and normal range of motion present. No Brudzinski's sign and no Kernig's sign noted. CV: Normal rate, regular rhythm, normal heart sounds and intact distal pulses. There is no peripheral edema. Palpable radial pulses bue. PULM/CHEST: Effort normal and breath sounds normal. No respiratory distress. No stridor. He has no wheezes. He has no rales. - Chest Wall: He exhibits no tenderness. ABD: The abdomen is soft. Bowel sounds are normal. He has no distension. No mass is present. There is no tenderness. There is no rebound, no guarding, no Galindo's sign and no tenderness at McBurney's point. Rovsig negative. MUSC/SKEL: Normal range of motion. There is no peripheral edema, tenderness or deformity. LYMPH: No cervical adenopathy. NEURO: He is alert and oriented to person, place, and time. He has normal strength. No cranial nerve deficit or sensory deficit. Coordination and gait normal. GCS eye subscore is 4. GCS verbal subscore is 5. GCS motor subscore is 6. Cerebellar tests wnl. SKIN: Skin is warm and dry. He is not diaphoretic. PSYCH: He has a normal mood and affect. Behavior is normal. Judgment and thought content normal. Course 1803: Per review of EMR, the patient was admitted to the hospital on 05/27/2019 and discharged on 05/29/2019 for diverticulitis and possible microperforation. Surgery was consulted, but no surgical procedure was performed. The patient was discharged on Augmentin and Flagyl. He had a CT head done at 1101 today which was normal. He also had negative blood work done at that time which showed no leukocytosis and a WBC count of 7.7. The patients urine today was positive for nitrites and showed 1+ leukocyte esterase, but showed 10-20 epithelial cells.The patient was evaluated in room B2. A complete history and physical exam was performed. 2119: I left a message for Dr. Green - Internal Medicine, [facility]. 2329: Vital signs stable. Labs and imaging are within normal limits. Multiple messages have been left for patient's PCP Dr. Campo to send the patient to the emergency department including a message on his cell phone. No response. The at bedside is very concerned because she was saying that the patient was having difficulty finding his words, and slurred speech, double vision. She is worried about a stroke. I complained to them that the CT did not show any evidence of hemorrhage or large ischemic stroke and his symptoms have resolved at this time, however he could have been suffering from a TIA. Given we are unable to contact his physician for possible work-up of TIA at [facility], he will be admitted to the hospital service. Upon reevaluation, the patient is stable. I discussed the findings and the treatment plan with the patient. He expresses agreement and understanding. I spoke with Dr. Thomas of the [facility] ist Service. The patient will be evaluated for further management. Consultations Consultation #1: I reviewed the patient's case with Dr. Thomas - Hospitalist, [facility]. He will evaluate the patient for further management. Time: 23:29 Administered Medications Sodium Chloride (Nss) 500 mls @ 125 mls/hr IV .Q4H KIRSTIN Stop: 07/02/19 18:14 Last Admin: 06/02/19 20:19 Dose: 125 mls/hr Documented by: [id number] Ioversol (Optiray 320 100ml) 94 ml IV ONCE PRN PRN Reason: Interaction Checking Stop: 06/06/19 19:53 Last Admin: 06/02/19 19:54 Dose: 94 ml Documented by: [id number] Medical Decision Making Medical Records Attestation: I reviewed the patient's medical records. Home Medications Current Medication List: was personally reviewed by me Laboratory Data Attestation: I reviewed the patient's lab results. Result diagrams: 06/02/19 18:20 06/02/19 19:17 Lab Results 06/02/19 06/02/19 06/02/19 Range/Units 18:20 18:20 18:20 WBC 7.97 (4.8-10.8) K/uL RBC 4.46 L (4.7-6.1) M/uL Hgb 14.6 (14.0-18.0) g/dL Hct 40.8 L (42-52) % MCV 91.5 (80-100) fL MCH 32.7 (25-34) pg MCHC 35.8 (32-36) g/dL RDW Std Deviation 42.6 (36.4-46.3) fL RDW Coeff of Reilly 12.7 (11.5-14.5) % Plt Count 274 (130-400) K/uL MPV 9.9 (7.4-10.4) fL Immature Gran % (Auto) 0.3 % Neut % (Auto) 53.4 % Lymph % (Auto) 30.5 % [place] % (Auto) 11.2 % Eos % (Auto) 4.1 % Baso % (Auto) 0.5 % Immature Gran # (Auto) 0.02 (0.00-0.02) K/uL Neut # (Auto) 4.26 (1.4-6.5) K/uL Lymph # (Auto) 2.43 (1.2-3.4) K/uL [place] # (Auto) 0.89 H (0.11-0.59) K/uL Eos # (Auto) 0.33 (0-0.5) K/uL Baso # (Auto) 0.04 (0-0.2) K/uL PT 12.9 H (9.0-12.0) Seconds INR 1.3 H (0.9-1.1) APTT 29.9 (21.0-31.0) Seconds PTT Ratio 1.1 Sodium 134 L (136-145) mmol/L Potassium (3.5-5.1) mmol/L Chloride 101 (98-107) mmol/L Carbon Dioxide 29 (21-32) mmol/L Anion Gap 5.0 (3-11) BUN 16 (7-18) mg/dl Creatinine 0.90 (0.6-1.4) mg/dl Est Cr Clr Drug Dosing 64.2 ml/min Est GFR ( Amer) 91.2 Est GFR (Non-Af Amer) 78.7 BUN/Creatinine Ratio 18.2 (10-20) Glucose 104 H (70-99) mg/dl Lactate (0.4-2.0) mmol/L Calcium 9.1 (8.5-10.1) mg/dl Magnesium (1.8-2.4) mg/dl Total Bilirubin 0.5 (0.2-1) mg/dl Direct Bilirubin (0-0.2) mg/dl AST (15-37) U/L ALT 40 (12-78) U/L Alkaline Phosphatase 55 (45-117) U/L Troponin I < 0.015 (0-0.045) ng/ml Total Protein 7.3 (6.4-8.2) gm/dl Albumin 3.4 (3.4-5.0) gm/dl Lipase 84 (73-393) U/L Urine Color Urine Appearance (Clear) Urine pH (4.5-7.5) Ur Specific [place] (1.000-1.030) Urine Protein (Negative) Urine Glucose (UA) (Negative) Urine Ketones (Negative) Urine Blood (Negative) Urine Nitrite (Negative) Urine Bilirubin (Negative) Urine Urobilinogen (Negative) Ur Leukocyte Esterase (Negative) Urine WBC (Auto) (0-5) /hpf Urine RBC (Auto) (0-4) /hpf U Hyaline Cast (Auto) (0-5) /lpf U Epithel Cells (Auto) (0-5) /lpf Urine Bacteria (Auto) (Negative) 06/02/19 06/02/19 06/02/19 Range/Units 18:20 19:17 20:05 WBC (4.8-10.8) K/uL RBC (4.7-6.1) M/uL Hgb (14.0-18.0) g/dL Hct (42-52) % MCV (80-100) fL MCH (25-34) pg MCHC (32-36) g/dL RDW Std Deviation (36.4-46.3) fL RDW Coeff of Reilly (11.5-14.5) % Plt Count (130-400) K/uL MPV (7.4-10.4) fL Immature Gran % (Auto) % Neut % (Auto) % Lymph % (Auto) % [place] % (Auto) % Eos % (Auto) % Baso % (Auto) % Immature Gran # (Auto) (0.00-0.02) K/uL Neut # (Auto) (1.4-6.5) K/uL Lymph # (Auto) (1.2-3.4) K/uL [place] # (Auto) (0.11-0.59) K/uL Eos # (Auto) (0-0.5) K/uL Baso # (Auto) (0-0.2) K/uL PT (9.0-12.0) Seconds INR (0.9-1.1) APTT (21.0-31.0) Seconds PTT Ratio Sodium (136-145) mmol/L Potassium 3.9 (3.5-5.1) mmol/L Chloride (98-107) mmol/L Carbon Dioxide (21-32) mmol/L Anion Gap (3-11) BUN (7-18) mg/dl Creatinine (0.6-1.4) mg/dl Est Cr Clr Drug Dosing ml/min Est GFR ( Amer) Est GFR (Non-Af Amer) BUN/Creatinine Ratio (10-20) Glucose (70-99) mg/dl Lactate 1.1 (0.4-2.0) mmol/L Calcium (8.5-10.1) mg/dl Magnesium 1.7 L (1.8-2.4) mg/dl Total Bilirubin (0.2-1) mg/dl Direct Bilirubin 0.1 (0-0.2) mg/dl AST 37 (15-37) U/L ALT (12-78) U/L Alkaline Phosphatase (45-117) U/L Troponin I (0-0.045) ng/ml Total Protein (6.4-8.2) gm/dl Albumin (3.4-5.0) gm/dl Lipase (73-393) U/L Urine Color Yellow Urine Appearance Clear (Clear) Urine pH 6.5 (4.5-7.5) Ur Specific [place] 1.038 H (1.000-1.030) Urine Protein Negative (Negative) Urine Glucose (UA) Negative (Negative) Urine Ketones Trace H (Negative) Urine Blood Negative (Negative) Urine Nitrite Negative (Negative) Urine Bilirubin Negative (Negative) Urine Urobilinogen Negative (Negative) Ur Leukocyte Esterase 1+ H (Negative) Urine WBC (Auto) 1-5 (0-5) /hpf Urine RBC (Auto) 5-10 H (0-4) /hpf U Hyaline Cast (Auto) 0 (0-5) /lpf U Epithel Cells (Auto) 5-10 H (0-5) /lpf Urine Bacteria (Auto) Negative (Negative) Imaging Data Radiologist's Impression: Radiology results as stated below per my review and th e radiologist's interpretation: CT OF THE ABDOMEN AND PELVIS WITH CONTRAST FINDINGS: Lung bases are unremarkable. The liver, spleen, adrenal glands and pancreas are unremarkable. Several subcentimeter renal lesions are too small character as but favor cysts. There is no hydronephrosis. There is no biliary or pancreatic ductal dilatation. There is no evidence for a bowel pattern. Colonic diverticulosis is noted. Mild infiltration adjacent to the distal descending colon has decreased since CT of May 27, 2019. There is no abscess. Pneumoperitoneum shown on that exam has resolved. Bladder is moderately enlarged. IMPRESSION: Acute diverticulitis of the distal descending colon improved since exam of May 27, 2019. No abscess. Interval decrease in pericolonic infiltration and resolution of pneumoperitoneum. Electronically signed by: Alonso Cagle M.D. 06/02/2019 8:18 PM XR chest 2V routine FINDINGS: Lung volumes are normal. Lungs are clear. There is no pneumothorax or pleural effusion. Cardiac size is normal. Mediastinal contours are normal. There is no evidence for pulmonary edema. IMPRESSION: No acute cardiopulmonary findings. Electronically signed by: Alonso Cagle M.D. 06/02/2019 9:21 PM ECG Data Attestation: I personally reviewed and interpreted this ECG as follows: Indication: weakness Rate (beats per minute): 75 Rhythm: sinus rhythm Findings: no ST depression and no ST elevation Additional Comments: VT/QRS/QTc within normal limits. Blood Pressure Blood Pressure Findings: Normal blood pressure Blood Pressure Disposition: did not require urgent referral [facility] Narrative 1803: Per review of EMR, the patient was admitted to the hospital on 05/27/2019 and discharged on 05/29/2019 for diverticulitis and possible microperforation. Surgery was consulted, but no surgical procedure was performed. The patient was discharged on Augmentin and Flagyl. He had a CT head done at 1101 today which was normal. He also had negative blood work done at that time which showed no leukocytosis and a WBC count of 7.7. The patients urine today was positive for nitrites and showed 1+ leukocyte esterase, but showed 10-20 epithelial cells.The patient was evaluated in room B2. A complete history and physical exam was perf ormed. 0: I left a message for Dr. Green - Internal Medicine, [facility]. 9: Vital signs stable. Labs and imaging are within normal limits. Multiple messages have been left for patient's PCP Dr. Campo to send the patient to the emergency department including a message on his cell phone. No response. The at bedside is very concerned because she was saying that the patient was having difficulty finding his words, and slurred speech, double vision. She is worried about a stroke. I complained to them that the CT did not show any evidence of hemorrhage or large ischemic stroke and his symptoms have resolved at this time, however he could have been suffering from a TIA. Given we are unable to contact his physician for possible work-up of TIA at [facility], he will be admitted to the hospital service. Upon reevaluation, the patient is stable. I discussed the findings and the treatment plan with the patient. He expresses agreement and understanding. I spoke with Dr. Thomas of the [facility] Hospitalist Service. The patient will be evaluated for further management. Impression & Plan Brain TIA Discharge Plan Visit Data Chief Complaint: Stroke/CVA Symptoms Stated Complaint: CONFUSION, DIZZINESS, SPEECH DIFFICULTY ED Provider: Farhat Negrete Discharge Problem: Brain TIA Patient Disposition: Being Evaluated by Hospitalist Forms Stand Alone Forms: My [facility] Prescriptions Prescriptions: No Action acetaminophen [Tylenol] 325 mg Tablet 650 mg PO Q4 PRN (Reason: Fever Or Pain) RF: 0 melatonin 1 mg Tablet 1 mg PO HS RF: 0 amoxicillin-pot clavulanate 875-125 mg Tablet 1 tab PO BIDM Qty: 15 RF: 0 Referrals Referrals: Andres Green MD [Primary Care Provider] - The scribe's documentation has been prepared under my direction and personally reviewed by me in its entirety. I confirm that the note above accurately reflects all work, treatment, procedures, and medical decision making performed by me.
[2019-06-03] MEDS ORDERED: MAGNESIUM HYDROXIDE SUSP 30 ML UDC PO PRN (03:25)
[2019-06-03] MEDS ORDERED: ALUMINUM/MAGNESIUM SUSP 30 ML UDC PO PRN (03:25)
[2019-06-03] MEDS ORDERED: ONDANSETRON INJ 2 MG/ML 2 ML VIAL IV PRN (03:25)
[2019-06-03] MEDS ORDERED: ACETAMINOPHEN 325 MG TAB PO PRN (03:25)
[2019-06-03] MEDS: SODIUM CHLORIDE 0.9% 500 ML IV SCH ×2 (03:27→03:29)
[2019-06-03] MEDS: NSS + 20MEQ KCL 20 MEQ/1,000 ML BAG IV SCH ×2 (03:42→14:36)
--- NOTE | 2019-06-03 05:42 | History & Physical Report ---
Date of Service June 03, 2019 Assessment & Plan (1) Diverticulitis of intestine with perforation: CT of abdomen pelvis showed improvement in the acute diverticulitis. We will hold Augmentin orally. Flagyl was noted to be discontinued. Place on ceftriaxone 1 g IV daily. NSS + KCl 20 mEq at 100 mils per hour. Zofran 4 mg IV every 6 hours PRN. Famotidine 20 mg IV every 12 hours. Present on Admission?: Yes (2) Adverse reaction to metronidazole: It appears that most of the patient's symptoms of generalized weakness, dehydration, headache and nausea were related to taking metronidazole. Present on Admission?: Yes (3) Dehydration, mild: See above Present on Admission?: Yes (4) Generalized weakness: See above Present on Admission?: Yes History of Present Illness Chief Complaint: The patient had been seen by his outpatient physician due to decreased oral intake and confusion. His medication Flagyl, that he been d ischarged on from the previous hospitalization, was discontinued due to potential side effects, and when patient's symptoms continued to worsen, his brought him to the emergency room for assessment Primary Care Provider: Andres Green MD The patient is an 84-year-old male recently admitted to [facility] from 05/27-05/29 due to acute diverticulitis. He had been discharged on Augmentin and Flagyl, however, it was felt by his outpatient physician that he may have been having a side effect of Flagyl, and this was discontinued earlier in the day. The patient's brought him to the emergency department tonight due to continued decreased oral intake and intermittent confusion. CT scan of abdomen and pelvis performed in ED tonight, showed improvement in the acute diverticulitis. 05/27/2019, with decreased infiltration, and resolved pneumoperitoneum. Allergies Allergy/AdvReac Type Severity Reaction Status Date / Time prednisone AdvReac changes Verified 06/02/19 19:19 mood with higher doses Home Medications Home Medications Medication Instructions Recorded Confirmed Type amoxicillin-pot clavulanate 1 tab PO BIDM #15 tab 05/29/19 06/02/19 Rx acetaminophen [Tylenol] 650 mg PO Q4 PRN 06/02/19 06/02/19 History melatonin 1 mg PO HS 06/02/19 06/02/19 History Past Med/Surg History Medical History Asthma DVT prophylaxis Hyperlipidemia Ventricular dysfunction Diverticulitis of intestine with perforation (Acute) Seasonal asthma Borderline diabetic Abdominal pain Diverticulitis 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 Family History Sister Myocardial infarction Hypertension Mother CHF (congestive heart failure) Social History Preferred Language: Senegalese Communication Ability: Effective 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 Beliefs That Will Affect Care: None Current Living Situation: Personal Care Facility Current Living Situation Comment: [facility] Feels Safe at Home: Yes Safety Concerns: Feels Safe At This Time Smoking Status: Former smoker Tobacco Type: pipe ; Cigarettes Per Day: pipe in college ; Hx Alcohol Use: Yes Alcohol type: wine Hx Substance Use: No Review of Systems Review of Systems: The patient denies chest pain, palpitations, shortness of breath, dyspnea on exertion, cough, lower extremity swelling, sore throat, fevers, chills, sweats, vomiting, diarrhea , constipation, abdominal pain, pelvic pain, blood in urine or stool, dysuria, urinary frequency or urgency, lightheadedness, dizziness, memory loss, loss of consciousness, rash, abnormal bruising or bleeding, imbalance, focal weakness, numbness or tingling in arms or legs, generalized arthralgias or myalgias, back or neck pain, or night sweats. The review of systems is otherwise negative other than for that already noted above, and at least 10 systems have been reviewed. Physical Exam Physical Exam: The patient is awake, alert and oriented 3, well developed and well nourished, normocephalic and atraumatic, lying in bed and in no acute distress. HEENT--PERRL, EOMI, mucous membranes and oropharynx dry. Neck--supple. No JVD. No bruits. Thyroid normal, trachea midline, no adenopathy. Heart--normal S1 and S2. No murmurs, rubs or gallops. Lungs--clear bilaterally, no respiratory distress, no accessory muscle use. Abdomen--normal bowel sounds and soft. Nontender. Nondistended. Extremities--no cyanosis or clubbing. No edema. There are good distal pulses b/l. Dermatologic--normal skin turgor, normal color, no abnormal lymph nodes, no rash. Neurologic--cranial nerves II through XII grossly intact. Rheumatologic--normal range of motion. Psychiatric--normal affect. Results & Data Vital Signs (Past 12 Hours) Vital Signs Temp Pulse Pulse Resp BP BP Pulse Ox 06/03/19 02:07 82 16 134/82 98 06/02/19 23:33 82 16 125/82 96 06/02/19 22:17 98.1 F 06/02/19 21:52 80 16 141/88 H 96 06/02/19 19:39 77 16 124/77 99 06/02/19 18:48 85 20 97 06/02/19 17:51 98.6 F 85 20 114/69 97 Laboratory Results Laboratory Results WBC 7.97 K/uL (4.8-10.8) 06/02/19 18:20 RBC 4.46 M/uL (4.7-6.1) L 06/02/19 18:20 Hgb 14.6 g/dL (14.0-18.0) 06/02/19 18:20 Hct 40.8 % (42-52) L 06/02/19 18:20 MCV 91.5 fL (80-100) 06/02/19 18:20 MCH 32.7 pg (25-34) 06/02/19 18:20 MCHC 35.8 g/dL (32-36) 06/02/19 18:20 RDW Std Deviation 42.6 fL (36.4-46.3) 06/02/19 18:20 RDW Coeff of Reilly 12.7 % (11.5-14.5) 06/02/19 18:20 Plt Count 274 K/uL (130-400) 06/02/19 18:20 MPV 9.9 fL (7.4-10.4) 06/02/19 18:20 Immature Gran % (Auto) 0.3 % 06/02/19 18:20 Neut % (Auto) 53.4 % 06/02/19 18:20 Lymph % (Auto) 30.5 % 06/02/19 18:20 [place] % (Auto) 11.2 % 06/02/19 18:20 Eos % (Auto) 4.1 % 06/02/19 18:20 Baso % (Auto) 0.5 % 06/02/19 18:20 Immature Gran # (Auto) 0.02 K/uL (0.00-0.02) 06/02/19 18:20 Neut # (Auto) 4.26 K/uL (1.4-6.5) 06/02/19 18:20 Lymph # (Auto) 2.43 K/uL (1.2-3.4) 06/02/19 18:20 [place] # (Auto) 0.89 K/uL (0.11-0.59) H 06/02/19 18:20 Eos # (Auto) 0.33 K/uL (0-0.5) 06/02/19 18:20 Baso # (Auto) 0.04 K/uL (0-0.2) 06/02/19 18:20 PT 12.9 Seconds (9.0-12.0) H 06/02/19 18:20 INR 1.3 (0.9-1.1) H 06/02/19 18:20 APTT 29.9 Seconds (21.0-31.0) 06/02/19 18:20 PTT Ratio 1.1 06/02/19 18:20 Sodium 134 mmol/L (136-145) L 06/02/19 18:20 Potassium 3.9 mmol/L (3.5-5.1) 06/02/19 19:17 Chloride 101 mmol/L (98-107) 06/02/19 18:20 Carbon Dioxide 29 mmol/L (21-32) 06/02/19 18:20 Anion Gap 5.0 (3-11) 06/02/19 18:20 BUN 16 mg/dl (7-18) 06/02/19 18:20 Creatinine 0.90 mg/dl (0.6-1.4) 06/02/19 18:20 Est Cr Clr Drug Dosing 64.2 ml/min 06/02/19 18:20 Est GFR ( Amer) 91.2 06/02/19 18:20 Est GFR (Non-Af Amer) 78.7 06/02/19 18:20 BUN/Creatinine Ratio 18.2 (10-20) 06/02/19 18:20 Glucose 104 mg/dl (70-99) H 06/02/19 18:20 Lactate 1.1 mmol/L (0.4-2.0) 06/02/19 18:20 Calcium 9.1 mg/dl (8.5-10.1) 06/02/19 18:20 Magnesium 1.7 mg/dl (1.8-2.4) L 06/02/19 19:17 Total Bilirubin 0.5 mg/dl (0.2-1) 06/02/19 18:20 Direct Bilirubin 0.1 mg/dl (0-0.2) 06/02/19 19:17 AST 37 U/L (15-37) 06/02/19 19:17 ALT 40 U/L (12-78) 06/02/19 18:20 Alkaline Phosphatase 55 U/L (45-117) 06/02/19 18:20 Troponin I < 0.015 ng/ml (0-0.045) 06/02/19 18:20 Total Protein 7.3 gm/dl (6.4-8.2) 06/02/19 18:20 Albumin 3.4 gm/dl (3.4-5.0) 06/02/19 18:20 Lipase 84 U/L (73-393) 06/02/19 18:20 Urine Color Yellow 06/02/19 20:05 Urine Appearance Clear (Clear) 06/02/19 20:05 Urine pH 6.5 (4.5-7.5) 06/02/19 20:05 Ur Specific Onset 1.038 (1.000-1.030) H 06/02/19 20:05 Urine Protein Negative (Negative) 06/02/19 20:05 Urine Glucose (UA) Negative (Negative) 06/02/19 20:05 Urine Ketones Trace (Negative) H 06/02/19 20:05 Urine Blood Negative (Negative) 06/02/19 20:05 Urine Nitrite Negative (Negative) 06/02/19 20:05 Urine Bilirubin Negative (Negative) 06/02/19 20:05 Urine Urobilinogen Negative (Negative) 06/02/19 20:05 Ur Leukocyte Esterase 1+ (Negative) H 06/02/19 20:05 Urine WBC (Auto) 1-5 /hpf (0-5) 06/02/19 20:05 Urine RBC (Auto) 5-10 /hpf (0-4) H 06/02/19 20:05 U Hyaline Cast (Auto) 0 /lpf (0-5) 06/02/19 20:05 U Epithel Cells (Auto) 5-10 /lpf (0-5) H 06/02/19 20:05 Urine Bacteria (Auto) Negative (Negative) 06/02/19 20:05 Diagnostic Findings [facility] [place], [place] [phone] CT Scan Report Patient: SUMI BELLAAdmit Date: 06/02/19 MR#: [id number]: [address] Acct ID:[id number]: [address] Date: 1935[facility] Zip: [place] [address] Age: 84Location: CT Sex: M Room/Bed: Att Phy: Andres Green M.D.Diagnosis: SHORT,GAIT ATAXIA,DYSKINESIS Stormy Phy: Andres Green M.D.Service Date: 06/02/19 Fam Phy: Interpreting Phy: Rojelio Setphens MD Admit Phy: Ordering Phy: Andres Green M.D. cc: ~ CT head/brain wo con CT DOSE: 614.27 mGy.cm HISTORY: Mental status change SHORT,GAIT ATAXIA,DYSKINESIS TECHNIQUE: Multiaxial CT images of the head were performed without the use of intravenous contrast. A dose lowering technique was utilized adhering to the principles of ALARA. Comparison: None. Findings: The paranasal sinuses and mastoid air cells are clear. The calvarium and skull base are intact. The ventricles and sulci are within normal limits. There is no mass, hematoma, midline shift, or acute infarct. Age-related atrophy and chronic small vessel change Impression: No acute intracranial abnormality. Age-related atrophy and chronic small vessel change. The above report was generated using voice recognition software. It may contain grammatical, syntax or spelling errors. Electronically signed by: Rojelio Stephens M.D. 06/02/2019 11:11 AM Dictated: 06/02/19 1109 Transcribed: 06/02/19 1109 [facility] [place], [place] [phone] CT Scan Report Patient: SUMI BELLAAdmit Date: 06/02/19 MR#: [id number]: [address] Acct ID:[id number]: [address] Date: 1935[facility] Zip: [place] [address] Age: 84Location: ED Sex: M Room/Bed: Att Phy: Diagnosis: CONFUSION, DIZZINESS, SPEECH DIFFICULTY Stormy Phy: Andres Green M.D.Service Date: 06/02/19 [place] Phy: Interpreting Phy: Alonso Cagle MD Admit Phy: Ordering Phy: Farhat Negrete M.D. cc: ~ CT OF THE ABDOMEN AND PELVIS WITH CONTRAST CLINICAL HISTORY: Fever. History of diverticulitis. COMPARISON STUDY: CT of the abdomen and pelvis May 27, 2019. TECHNIQUE: Following IV administration of 94 mL of Optiray-320, axial images of the abdomen and pelvis were obtained from the lung bases to the proximal femurs. Images were reviewed in the axial, sagittal, and coronal planes. IV contrast was administered without complication. Automated exposure control was utilized for the study. A dose lowering technique was utilized adhering to the principles of ALARA. CT DOSE: 627.07 mGycm FINDINGS: Lung bases are unremarkable. The liver, spleen, adrenal glands and pancreas are unremarkable. Several subcentimeter renal lesions are too small character as but favor cysts. There is no hydronephrosis. There is no biliary or pancreatic ductal dilatation. There is no evidence for a bowel pattern. Colonic diverticulosis is noted. Mild infiltration adjacent to the distal descending colon has decreased since CT of May 27, 2019. There is no abscess. Pneumoperitoneum shown on that exam has resolved. Bladder is moderately enlarged. IMPRESSION: Acute diverticulitis of the distal descending colon improved since exam of May 27, 2019. No abscess. Interval decrease in pericolonic infiltration and resolution of pneumoperitoneum. Electronically signed by: Alonso Cagle M.D. 06/02/2019 8:18 PM Dictated: 06/02/192011 [facility] [place] [phone] XRay Report Patient: SUMI BELLAAdmit Date: 06/02/19 MR#: [id number]: [address] Acct ID:[id number]: [address] Date: 1935[facility] Zip: [place] [address] Age: 84Location: ED Sex: M Room/Bed: Att Phy: Diagnosis: CONFUSION, DIZZINESS, SPEECH DIFFICULTY Stormy Phy: Andres Green M.D.Service Date: 06/02/19 [facility] Phy: Interpreting Phy: Alonso Cagle MD Admit Phy: Ordering Phy: Farhat Negrete M.D. cc: ~ XR chest 2V routine CLINICAL HISTORY: Chest pain. COMPARISON STUDY: Chest radiograph January 27, 2012. FINDINGS: Lung volumes are normal. Lungs are clear. There is no pneumothorax or pleural effusion. Cardiac size is normal. Mediastinal contours are normal. There is no evidence for pulmonary edema. IMPRESSION: No acute cardiopulmonary findings. Electronically signed by: Alonso Cagle M.D. 06/02/2019 9:21 PM Dictated: 06/02/192119 Transcribed: 06/02/192119 Code Status & VTE Plan Code Status Full code VTE Prophylaxis Plan VTE Prophylaxis will be ordered: Yes PG Care Time/CCT Total # of Minutes Spent Total Time Spent with Patient: Total time spent is greater than 50% in coordination of care (as documented) at patient's floor/unit and/or counseling patient: (1) Diverticulitis of intestine with perforation Diverticulitis bleeding: unspecified bleeding status Diverticulitis site: unspecified part of intestinal tract Qualified Code(s): K57.80 - Diverticulitis of intestine, part unspecified, with perforation and abscess without bleeding
[2019-06-03] MEDS: ACETAMINOPHEN 325 MG TAB PO PRN ×2 (07:45→20:23)
[2019-06-03] MEDS: HEPARIN SOD 5,000 UNIT/0.5 ML VIAL SQ SCH ×2 (08:28→20:23)
[2019-06-03] MEDS ORDERED: cefTRIAXone SODIUM 2,000 MG in DEXTROSE 5% 50 ML IV SCH (09:00)
[2019-06-03] MEDS: MAGNESIUM SULFATE / D5W 1 GM/100 ML BAG IV SCH ×2 (09:19→10:11)
[2019-06-03] MEDS: SODIUM CHLORIDE 0.9% 1000ML 1,000 ML IV SCH (16:41)
[2019-06-03] MEDS ORDERED: LORazepam 0.5 MG/1 ML VIAL IV STA (17:03)
[2019-06-03] MEDS ORDERED: LORazepam 2 MG/4 ML VIAL ONE (17:07)
--- NOTE | 2019-06-03 17:40 | Family Medicine Progress Note ---
Date of Service June 03, 2019 Assessment & Plan (1) Diverticulitis of intestine with perforation: 84y/o M presented after increased loss of memory, confusion, and difficulty finding words. Recent neuro-psych testing conducted by PCP did not demonstrate baseline deficits. Apparent sudden onset following metronidazole start for acute diverticulitis. Confusion/memory loss/expressive aphagia: -Progressive onset over the last week -no previous baseline deficits, or difficulty with memory -CT head negative for abnormalities -Ordered: B12, TSH, Lyme, MRI Brain Acute diverticulitis: -CT of abdomen pelvis showed improvement in the acute diverticulitis. -Continue Augmentin 875mg TID -NSS + KCl 20 mEq at 100 mils per hour. -Zofran 4 mg IV every 6 hours PRN. -Famotidine 20 mg IV every 12 ho (2) Adverse reaction to metronidazole: (3) Dehydration, mild: (4) Generalized weakness: Supervising Physician Co-Signing Physician Notes I personally examined the patient and verified all guillen points of history and exam, discussed case, and agree with decision making with Dr Sy. Patient feels about the same. Having difficulty with word finding. His is a former speech therapist so she is very upset about this as well. They note that about 2 weeks ago was totally normal, it is really just been in the last week or so he had these difficulties. It is basically been constantly for the last week. Vitals noted, in general he is awake and alert pleasant no distress. HEENT normocephalic atraumatic mucous members moist. Breathing unlabored no accessory muscle use good effort. Skin shows no rashes no pallor or icterus. No focal neuro deficits. He does seem to word block and struggled to think about what he is trying to say. Difficulty with word findingPCP wonders about reaction to metronidazole, given the time course and in review of the fact that there are other RECORD CHANGER related side effects that rarely can occur with metronidazole, seems that it could be plausible. Likewise, the patient is 84 and was just in the hospital, so it is possible that we have a mild degree of delirium as the cause of the difficulty word finding. CT head is normal, but the symptoms started recently enough that we will check MRI brain to rule out anything cerebrovascular, although his word finding does not seem dense enough to truly represent a Broca's aphasia. That said a negative MRI for ischemia would effectively rule out this whole family of pathology. questions Lyme, I note this is unlikely but we are in an absolutely endemic areatherefore Lyme screen will be checked. It seems low enough probability to not put him through an LP for CSF Lyme serology unless he does not improve. Check TSH and B12 for completeness. If MRI is negative, next step would likely be returned to home with close follow-up, as the leading differentials would both be things that would simply improve with time. DVT prophylaxisheparin subcu Otherwise as above Subjective Pt is symptomatically feeling better in regards to abdomen; but is most concerned about continued inability to fully express himself, and a recent increase in his forgetfullness following the start of metronidazole. Had previous neuro-psych testing completed in April for general exam, and had no other baseline difficulties prior to recent infection and being started on Zosyn and subsequently converted to Metronidazole. has noticed regular decline in speech pattern and increase in general weakness and forgetfulness since discharge and being started on abx. No previous baseline deficits. Review of Systems Constitutional: no fever, no chills, no sweats and no weakness Eyes: no diplopia and no worsening vision Respiratory: no cough and no dyspnea Cardiovascular: no chest pain, no palpitations and no edema Gastrointestinal: no abdominal pain, no early satiety, no nausea and no vomiting Genitourinary: no dysuria, no urinary incontinence, no hematuria and no flank pain Musculoskeletal: + muscle weakness; no joint pain, no swelling and no stiffness Neurologic: + unsteadiness, + headache(s) and + abnormal speech (difficulty finding words) Physical Exam Constitutional: well developed, well nourished and cooperative Eyes: PERRL and EOM intact bilaterally Respiratory: normal respiratory effort; no respiratory distress Auscultation: lungs clear to auscultation bilaterally; no crackles, no rales and no wheezes Cardiovascular: Rate/Rhythm: regular rate and regular rhythm Heart Sounds: normal S1 and normal S2; no gallop, no murmur and no cardiac rub Extremities: no pedal edema and no edema Gastrointestinal (Abdomen): Inspection/Auscultation: abdomen normal to inspection Percussion/Palpation: abdomen soft; abdomen nontender, no guarding and no hepatosplenomegaly Neurologic: normal touch/pain/proprioception, CN's II-XI intact bilaterally, normal sensation to monofilament, moves all extremities and awake; no focal motor deficits Speech / Cognition: + expressive aphasia (difficulty finding words, spelling his own name backwords) and + abnormal cognition (able to complete two serial 7s); no receptive aphasia Motor/Sensory: no tremor and normal movement Psychiatric: Orientation: oriented to person, oriented to place (very slow to determination of location (city and state)) and oriented to time Eye Contact: good eye contact Results & Data Vital Signs (Past 12 Hours) Vital Signs Temp Pulse Resp BP Pulse Ox 06/03/19 15:15 36.8 C 74 20 120/77 95 06/03/19 11:42 36.9 C 69 22 164/71 H 99 06/03/19 07:25 36.9 C 61 20 132/73 96 Laboratory Results 06/02/19 06/02/19 06/02/19 Range/Units 20:05 19:17 18:20 WBC (4.8-10.8) K/uL RBC (4.7-6.1) M/uL Hgb (14.0-18.0) g/dL Hct (42-52) % MCV (80-100) fL MCH (25-34) pg MCHC (32-36) g/dL RDW Std Deviation (36.4-46.3) fL RDW Coeff of Reilly (11.5-14.5) % Plt Count (130-400) K/uL MPV (7.4-10.4) fL Immature Gran % (Auto) % Neut % (Auto) % Lymph % (Auto) % Sterling % (Auto) % Eos % (Auto) % Baso % (Auto) % Immature Gran # (Auto) (0.00-0.02) K/uL Neut # (Auto) (1.4-6.5) K/uL Lymph # (Auto) (1.2-3.4) K/uL Sterling # (Auto) (0.11-0.59) K/uL Eos # (Auto) (0-0.5) K/uL Baso # (Auto) (0-0.2) K/uL PT (9.0-12.0) Seconds INR (0.9-1.1) APTT (21.0-31.0) Seconds PTT Ratio Sodium (136-145) mmol/L Potassium 3.9 (3.5-5.1) mmol/L Chloride (98-107) mmol/L Carbon Dioxide (21-32) mmol/L Anion Gap (3-11) BUN (7-18) mg/dl Creatinine (0.6-1.4) mg/dl Est Cr Clr Drug Dosing ml/min Est GFR ( Amer) Est GFR (Non-Af Amer) BUN/Creatinine Ratio (10-20) Glucose (70-99) mg/dl Lactate 1.1 (0.4-2.0) mmol/L Calcium (8.5-10.1) mg/dl Magnesium 1.7 L (1.8-2.4) mg/dl Total Bilirubin (0.2-1) mg/dl Direct Bilirubin 0.1 (0-0.2) mg/dl AST 37 (15-37) U/L ALT (12-78) U/L Alkaline Phosphatase (45-117) U/L Troponin I (0-0.045) ng/ml Total Protein (6.4-8.2) gm/dl Albumin (3.4-5.0) gm/dl Lipase (73-393) U/L Urine Color Yellow Urine Appearance Clear (Clear) Urine pH 6.5 (4.5-7.5) Ur Specific Cayce 1.038 H (1.000-1.030) Urine Protein Negative (Negative) Urine Glucose (UA) Negative (Negative) Urine Ketones Trace H (Negative) Urine Blood Negative (Negative) Urine Nitrite Negative (Negative) Urine Bilirubin Negative (Negative) Urine Urobilinogen Negative (Negative) Ur Leukocyte Esterase 1+ H (Negative) Urine WBC (Auto) 1-5 (0-5) /hpf Urine RBC (Auto) 5-10 H (0-4) /hpf U Hyaline Cast (Auto) 0 (0-5) /lpf U Epithel Cells (Auto) 5-10 H (0-5) /lpf Urine Bacteria (Auto) Negative (Negative) 06/02/19 06/02/19 06/02/19 Range/Units 18:20 18:20 18:20 WBC 7.97 (4.8-10.8) K/uL RBC 4.46 L (4.7-6.1) M/uL Hgb 14.6 (14.0-18.0) g/dL Hct 40.8 L (42-52) % MCV 91.5 (80-100) fL MCH 32.7 (25-34) pg MCHC 35.8 (32-36) g/dL RDW Std Deviation 42.6 (36.4-46.3) fL RDW Coeff of Reilly 12.7 (11.5-14.5) % Plt Count 274 (130-400) K/uL MPV 9.9 (7.4-10.4) fL Immature Gran % (Auto) 0.3 % Neut % (Auto) 53.4 % Lymph % (Auto) 30.5 % Sterling % (Auto) 11.2 % Eos % (Auto) 4.1 % Baso % (Auto) 0.5 % Immature Gran # (Auto) 0.02 (0.00-0.02) K/uL Neut # (Auto) 4.26 (1.4-6.5) K/uL Lymph # (Auto) 2.43 (1.2-3.4) K/uL Sterling # (Auto) 0.89 H (0.11-0.59) K/uL Eos # (Auto) 0.33 (0-0.5) K/uL Baso # (Auto) 0.04 (0-0.2) K/uL PT 12.9 H (9.0-12.0) Seconds INR 1.3 H (0.9-1.1) APTT 29.9 (21.0-31.0) Seconds PTT Ratio 1.1 Sodium 134 L (136-145) mmol/L Potassium (3.5-5.1) mmol/L Chloride 101 (98-107) mmol/L Carbon Dioxide 29 (21-32) mmol/L Anion Gap 5.0 (3-11) BUN 16 (7-18) mg/dl Creatinine 0.90 (0.6-1.4) mg/dl Est Cr Clr Drug Dosing 64.2 ml/min Est GFR ( Amer) 91.2 Est GFR (Non-Af Amer) 78.7 BUN/Creatinine Ratio 18.2 (10-20) Glucose 104 H (70-99) mg/dl Lactate (0.4-2.0) mmol/L Calcium 9.1 (8.5-10.1) mg/dl Magnesium (1.8-2.4) mg/dl Total Bilirubin 0.5 (0.2-1) mg/dl Direct Bilirubin (0-0.2) mg/dl AST (15-37) U/L ALT 40 (12-78) U/L Alkaline Phosphatase 55 (45-117) U/L Troponin I < 0.015 (0-0.045) ng/ml Total Protein 7.3 (6.4-8.2) gm/dl Albumin 3.4 (3.4-5.0) gm/dl Lipase 84 (73-393) U/L Urine Color Urine Appearance (Clear) Urine pH (4.5-7.5) Ur Specific Cayce (1.000-1.030) Urine Protein (Negative) Urine Glucose (UA) (Negative) Urine Ketones (Negative) Urine Blood (Negative) Urine Nitrite (Negative) Urine Bilirubin (Negative) Urine Urobilinogen (Negative) Ur Leukocyte Esterase (Negative) Urine WBC (Auto) (0-5) /hpf Urine RBC (Auto) (0-4) /hpf U Hyaline Cast (Auto) (0-5) /lpf U Epithel Cells (Auto) (0-5) /lpf Urine Bacteria (Auto) (Negative) Medications Administered Current Inpatient Medications Acetaminophen (Tylenol) 650 mg PO Q4 PRN PRN Reason: Fever Or Pain Stop: 07/03/19 03:24 Last Admin: 06/03/19 07:45 Dose: 650 mg Documented by: Al Hydrox/Mg Hydrox/Simethicone (Maalox) 15 ml PO Q4H PRN PRN Reason: Dyspepsia Stop: 07/03/19 03:24 Amoxicillin/Clavulanate Potassium (Augmentin 875mg) 1 tab PO TID KIRSTIN Stop: 06/13/19 20:59 Heparin Sodium (Porcine) (Heparin Sodium (Porcine)) 5,000 units SQ Q12 KIRSTIN Stop: 07/03/19 08:59 Last Admin: 06/03/19 08:28 Dose: 5,000 units Documented by: Potassium Chloride/Sodium Chloride (Normal Saline W/20 Meq Kcl) 20 meq in 1,000 mls @ 100 mls/hr IV .Q10H KIRSTIN Stop: 07/03/19 03:24 Last Admin: 06/03/19 14:36 Dose: 100 mls/hr Documented by: Sodium Chloride (Nss 1000ml) 1,000 mls @ 80 mls/hr IV .[id number] KIRSTIN Stop: 07/03/19 15:44 Last Admin: 06/03/19 16:41 Dose: 80 mls/hr Documented by: Ioversol (Optiray 320 100ml) 94 ml IV ONCE PRN PRN Reason: Interaction Checking Stop: 06/06/19 19:53 Last Admin: 06/02/19 19:54 Dose: 94 ml Documented by: Magnesium Hydroxide (Milk Of Magnesia) 30 ml PO Q12H PRN PRN Reason: Constipation Stop: 07/03/19 03:24 Ondansetron HCl (Zofran) 4 mg IV Q6H PRN PRN Reason: Nausea Stop: 07/03/19 03:24 PG Care Time/CCT Total # of Minutes Spent Total Time Spent with Patient: Total time spent is greater than 50% in proposal coordinator rdination of care (as documented) at patient's floor/unit and/or counseling patient: Resident Activity Tracking Resident Involvement: Resident Care Provided Care Provided: Adult Hospital Medicine (1) Diverticulitis of intestine with perforation Diverticulitis bleeding: unspecified bleeding status Diverticulitis site: unspecified part of intestinal tract Qualified Code(s): K57.80 - Diverticulitis of intestine, part unspecified, with perforation and abscess without bleeding
[2019-06-03] MEDS ORDERED: GADOBUTROL 30ML VIAL IV PRN (18:02)
--- NOTE | 2019-06-03 19:23 | Magnetic Resonance Report ---
MR brain wo/w con HISTORY: 84 years-old Male progressive dementia - ?origin progressively worsening dementia with visi on changes, gait and balance issues COMPARISON: CT head 06/02/2019, brain MRI 05/27/2011 TECHNIQUE: Multiplanar multisequence MRI the brain was obtained both with and without the use of 8 mL Gadavist FINDINGS: Pairer localizer images demonstrate no gross extracranial abnormality. There is no restricted diffusio n to suggest acute or subacute infarction. Motion degraded exam. Midline structures including the cor pus callosum, brainstem, optic chiasm, pituitary and pineal glands appear unremarkable on the sagitta l T1 series. No cerebellar tonsillar herniation. Degenerative changes noted about the imaged cervical spine. No acute intracranial hemorrhage, midline shift, abnormal extra axial collection, hydrocephalus or in tracranial mass. Age-related involutional changes. No significant T2/FLAIR signal abnormalities of th e brain parenchyma. There is no abnormal intra-axial or extra-axial enhancement. Major flow voids at the level of the skull base appear patent. Mild mucosal thickening of the maxillary and ethmoid sinus es and nasal terminates and spurring of the nasal septum. Prior bilateral cataract repair. The skull and soft tissues are within normal limits. IMPRESSION: 1. Motion degraded exam without acute intracranial abnormality. 2. Age-related involutional changes. 3. No abnormal enhancement. 4. Mild paranasal sinus disease. The above report was generated using voice recognition software. It may contain grammatical, syntax o r spelling errors. Electronically signed by: Raul Delatorre M.D. 06/03/2019 7:21 PM
[2019-06-03] MEDS ORDERED: NON-FORMULARY MEDICATION (Melatonin 1 MG) PO SCH (21:00)
[2019-06-03] MEDS: AMOXICILLIN/CLAVULANATE 875 MG TAB PO SCH (22:13)
[2019-06-04] MEDS: SODIUM CHLORIDE 0.9% 1000ML 1,000 ML IV SCH (05:27)
[2019-06-04] MEDS: ACETAMINOPHEN 325 MG TAB PO PRN ×2 (05:30→13:56)
[2019-06-04] MEDS: AMOXICILLIN/CLAVULANATE 875 MG TAB PO SCH ×2 (07:38→13:11)
[2019-06-04] MEDS: HEPARIN SOD 5,000 UNIT/0.5 ML VIAL SQ SCH (07:38)
[2019-06-04 10:22] LABS: BUN Creatinine Ratio 15.2 (10-20); Calcium 8.4 mg/dl (8.5-10.1); Creatinine Clr Calc Pharmacy 64.2 ml/min; Est GFR (African American) 91.2; Est GFR (Non-African American) 78.7; Potassium 3.9 mmol/L (3.5-5.1)
[2019-06-04 10:32] LABS: Thyroid Stimulating Hormone 2.57 uIu/ml (0.300-4.500)
[2019-06-04 10:52] LABS: Basophils # (auto) 0.05 K/uL (0-0.2); Basophils % (auto) 0.7 %; Eosinophils # (auto) 0.17 K/uL (0-0.5); Eosinophils % (auto) 2.4 %; Hematocrit (blood only) 40.3 % (42-52); Hemoglobin 14.3 g/dL (14.0-18.0); Immature Granulocytes # (auto) 0.03 K/uL (0.00-0.02); Immature Granulocytes % (auto) 0.4 %; Lymphocytes # (auto) 2.57 K/uL (1.2-3.4); Mean Corpuscular Hemoglobin 32.8 pg (25-34); Mean Corpuscular Hgb Conc 35.5 g/dL (32-36); Mean Corpuscular Volume 92.4 fL (80-100); Monocytes # (auto) 0.87 K/uL (0.11-0.59); Monocytes % (auto) 12.2 %; Neutrophils # (auto) 3.45 K/uL (1.4-6.5); Neutrophils % (auto) 48.3 %; Platelet Count 308 K/uL (130-400); RDW Coefficient of Variation 12.8 % (11.5-14.5); RDW Standard Deviation 43.3 fL (36.4-46.3); Red Blood Count 4.36 M/uL (4.7-6.1); White Blood Count 7.14 K/uL (4.8-10.8)
[2019-06-04 11:23] LABS: Lyme Ab IgG w/WB Rflx Negative (Negative); Lyme Ab IgM w/WB Rflx Negative (Negative)
--- NOTE | 2019-06-04 13:49 | Discharge Summary ---
Date of Service June 04, 2019 Admission HPI Per Admitting Provider The patient is an 84-year-old male recently admitted to [facility] from 05/27- 05/29 due to acute diverticulitis. He had been discharged on Augmentin and Flagyl, however, it was felt by his outpatient physician that he may have been having a side effect of Flagyl, and this was discontinued earlier in the day. The patient's brought him to the emergency department tonight due to continued decreased oral intake and intermittent confusion. CT scan of abdomen and pelvis performed in ED tonight, showed improvement in the acute diverticulitis. 05/27/2019, with decreased infiltration, and resolved pneumoperitoneum. Admission Exam (Per Admitting) Constitutional well developed, well nourished and cooperative Eyes PERRL and EOM intact bilaterally Respiratory normal respiratory effort; no respiratory distress Auscultation: lungs clear to auscultation bilaterally; no crackles, no rales and no wheezes Cardiovascular Rate/Rhythm: regular rate and regular rhythm Heart Sounds: normal S1 and normal S2; no gallop, no murmur and no cardiac rub Extremities: no pedal edema and no edema Gastrointestinal (Abdomen) Inspection/Auscultation: abdomen normal to inspection Percussion/Palpation: abdomen soft; abdomen nontender, no guarding and no hepatosplenomegaly Neurologic normal touch/pain/proprioception, CN's II-XI intact bilaterally, normal sensation to monofilament, moves all extremities and awake; no focal motor deficits Speech / Cognition: + expressive aphasia (difficulty finding words, spelling his own name backwords) and + abnormal cognition (able to complete two serial 7s); no receptive aphasia Motor/Sensory: no tremor and normal movement Psychiatric Orientation: oriented to person, oriented to place (very slow to determination of location (city and state)) and oriented to time Eye Contact: good eye contact Discharge Data Consultations 06/02/19 22:58 ED Decision to Admit Stat 06/03/19 03:25 Consult Case Management - Discharge Planning Routine Hospital Course (1) Diverticulitis of intestine with perforation: 84y/o M presented after increased loss of memory, confusion, and difficulty finding words. Recent neuro-psych testing conducted by PCP did not demonstrate baseline deficits. Apparent sudden onset following metronidazole start for acute diverticulitis. Confusion/memory loss/expressive aphagia: -Progressive onset over the last week while on metronidazole -no previous baseline deficits, or difficulty with memory -return to baseline cognitive function, with some maintained unsteadiness in gait following three days off metronidazole -no other source or explanation for rapid onset and rapid relief of these symptoms that were maintained over this length of time (7 days) -CT head negative for abnormalities; MRI negative for abnormalities -Ordered: B12 normal, TSH normal, Lyme IgG & IgM negative Acute diverticulitis: -CT of abdomen pelvis showed improvement in the acute diverticulitis. -Continue Augmentin 875mg TID for three days after discharge (end date of 06/07/19) (2) Adverse reaction to metronidazole: (3) Dehydration, mild: (4) Generalized weakness: Supervising Physician Co-Signing Physician Notes I personally examined the patient and verified all guillen points of history and exam, discussed case, and agree with decision making with Dr Sy. Feels remarkably better. Basically back to normal. corroborates this. Vitals noted, in general he is awake and alert his speech is fluent he shows no focal neuro deficits. Skin shows no rashes no pallor or icterus. Breathing is unlabored. Difficulty with word findingmarkedly improved. MRI brain negative. Lyme negative, B12 420, TSH about 2.5. PCPs suspicion of an odd reaction to metronidazole certainly seems quite plausible, and has resolved. Patient stable for discharge to SNF. Unsteady gaitreturn to SNF for ongoing PT/OT eval and treat. Hopefully this will improve quickly as well. DVT prophylaxisheparin subcu utilized while he is here Otherwise as above Resident Activity Tracking Resident Involvement: Resident Care Provided Care Provided: Adult Hospital Medicine
--- NOTE | 2019-07-07 13:23 | Coding Query ---
A supporting diagnosis is required for the test/procedure performed on this patient in order for us to be reimbursed by the patient's insurance. Please provide a supporting diagnosis for the following test/procedure listed below next to the test name along with your signature. *If there is no additional diagnosis for this patient that would support the following test/procedure please document that below next to the test/procedure. Test(s)/Procedure(s) that require a supporting diagnosis: Vitamin B12 DIAGNOSIS: Provider Signature: Date: Thank you Ree [facility] Health Information Management Once completed, please kindly fax back to [phone] For questions please call [phone] TENZIN
== END 2019-06-04 14:05 ==
LOC: 2N 17:44 → ED 17:44 → SUATTDRO 06-03 01:41 → 2N 06-03 02:05